=== PATIENT | male | born 1940 | race Hispanic/Latino ===

== ENCOUNTER 2018-03-03 08:00 | Inpatient (IN) | payer MEDICARE, OTHER ==
[~2018-03-03] VITALS: Ht 175.3 cm; Wt 85.7 kg
[2018-03-03 11:54] LABS: BASOPHILS % (AUTO) 0.8 % (0.0-5.0); EOSINOPHILS % (AUTO) 2.5 % (0.0-8.0); LYMPHOCYTES % (AUTO) 28.1 % (21.0-51.0); MEAN CORPUSCULAR HEMOGLOBIN 28.1 pg (27.0-33.0); MEAN CORPUSCULAR HGB CONC 33.7 g/dL (32.0-36.0); MEAN CORPUSCULAR VOLUME 83.4 fL (79-99); MONOCYTES % (AUTO) 9.6 % (3.0-13.0); PLATELET COUNT (AUTO) 196 K/uL (130-400); RED BLOOD CELL COUNT(AUTO) 4.32 MIL/uL (4.50-6.20); RED CELL DISTRIBUTION WIDTH 15.4 % (11.0-15.5); WHITE BLOOD COUNT (AUTO) 6.7 K/uL (4.8-10.8)
[2018-03-03 12:04] LABS: POTASSIUM 3.9 mmol/L (3.5-5.1)
[2018-03-03 12:07] LABS: INR 0.91 (0.85-1.15); PARTIAL THROMBOPLASTIN TIME 26.1 SEC (26.3-35.5); PROTHROMBIN TIME 9.6 SEC (9.6-11.6)
[2018-03-03 12:39] VITALS: BP 143/69
[2018-03-03] MEDS ORDERED: ESOM40CA PO (12:51)
[2018-03-05] VITALS (20 sets, daily range): BP systolic 107–173; BP diastolic 47–91
[2018-03-05] MEDS: CEFAZOLIN SODIUM 1 GM VIAL IVP SCH ×2 (06:00→13:28)
[2018-03-05] MEDS: SODIUM CHLORIDE 0.9% 1000ML 1,000 ML IV SCH ×4 (07:06→20:52)
[2018-03-05] MEDS ORDERED: HEPARIN SODIUM 1000UNIT/ML 10ML VIAL ONE ×2 (09:32→10:27)
[2018-03-05] MEDS ORDERED: ISOVUE-300 100 ML VIAL IV ONE (09:32)
[2018-03-05] MEDS ORDERED: EPHEDRINE SULFATE 50 MG/ML AMPULE ONE (09:56)
[2018-03-05] MEDS ORDERED: SODIUM CHLORIDE 0.9% 10 ML VIAL ONE ×2 (09:56→18:09)
[2018-03-05] MEDS ORDERED: PHENYLEPHRINE HCL 10 MG/ML 1ML VIAL IV ONE (09:56)
[2018-03-05] MEDS ORDERED: MIDAZOLAM HCL 1 MG/ML 2ML VIAL ONE (09:56)
[2018-03-05] MEDS ORDERED: PROPOFOL 10 MG/ML 20ML VIAL IV ONE (09:57)
[2018-03-05] MEDS ORDERED: FENTANYL CITRATE PF 50 MCG/1 ML 5ML AMP IV ONE (09:57)
[2018-03-05] MEDS ORDERED: GLYCOPYRROLATE 0.2 MG/ML 5 ML VIAL ONE (09:57)
[2018-03-05] MEDS ORDERED: NEOSTIGMINE 5MG/5ML SYR IV ONE (09:57)
[2018-03-05] MEDS ORDERED: LIDOCAINE HCL MPF 1% 5ML VIAL ONE (09:57)
[2018-03-05] MEDS ORDERED: ONDANSETRON HCL 4 MG/2 ML VIAL ONE (10:26)
[2018-03-05] MEDS ORDERED: DEXAMETHASONE SOD PHOSPHATE 10MG/ML 1ML VIAL ONE (10:26)
[2018-03-05] MEDS ORDERED: ROCURONIUM BROMIDE 10MG/1ML 5ML VL ONE (10:58)
[2018-03-05] MEDS ORDERED: LIDOCAINE PF 2% 5ML ABBOJECT ONE (12:09)
[2018-03-05] MEDS ORDERED: MORPHINE SULFATE 4 MG/1ML SYG IV PRN ×2 (12:15)
[2018-03-05] MEDS ORDERED: ONDANSETRON HCL MDV 20ML 2 MG/ML VIAL IV PRN (12:15)
[2018-03-05] MEDS ORDERED: ROSU10TA PO (12:22)
[2018-03-05] MEDS ORDERED: METO25TA3 PO (12:22)
[2018-03-05] MEDS ORDERED: HYDRALAZINE HCL 20 MG/ML VIAL IV PRN (13:15)
[2018-03-05] MEDS ORDERED: HYDRALAZINE HCL 20 MG/ML VIAL ONE (13:20)
[2018-03-05] MEDS: CEFAZOLIN SODIUM 1 GM VIAL IV SCH (18:11)
[2018-03-05] MEDS: METOPROLOL TARTRATE 25 MG TAB PO SCH (20:53)
[2018-03-06] VITALS (11 sets, daily range): BP systolic 112–140; BP diastolic 53–72
[2018-03-06] MEDS: CEFAZOLIN SODIUM 1 GM VIAL IV SCH (02:04)
[2018-03-06 03:56] LABS: HEMATOCRIT 30.6 % (42-54); MEAN CORPUSCULAR HEMOGLOBIN 27.7 pg (27.0-33.0); MEAN CORPUSCULAR HGB CONC 33.3 g/dL (32.0-36.0); MEAN CORPUSCULAR VOLUME 83.4 fL (79-99); PLATELET COUNT (AUTO) 166 K/uL (130-400); RED BLOOD CELL COUNT(AUTO) 3.67 MIL/uL (4.50-6.20); RED CELL DISTRIBUTION WIDTH 15.5 % (11.0-15.5); WHITE BLOOD COUNT (AUTO) 9.1 K/uL (4.8-10.8)
[2018-03-06 04:26] LABS: CREATININE 0.9 mg/dL (0.5-1.5); POTASSIUM 3.8 mmol/L (3.5-5.1)
[2018-03-06] MEDS ORDERED: ASPI-555 PO (07:18)
[2018-03-06] MEDS: METOPROLOL TARTRATE 25 MG TAB PO SCH (08:09)
[2018-03-06] MEDS ORDERED: PANTOPRAZOLE SODIUM 40 MG TABLET.DR PO SCH (09:00)
[2018-03-06] MEDS ORDERED: ASPIRIN 81 MG EC TAB PO SCH (09:00)
[2018-03-06] MEDS ORDERED: ASPIRIN 81MG TAB.CHEW PO SCH (09:00)
== END 2018-03-06 11:50 | disposition home or self-care (01) | DRG 269 ==
LOC: EDSTATUS 08:00 → DAHIP 03-05 05:44 → 2BH 03-05 12:45
PROVIDERS: ADMIT Internal Medicine Cardiovascular Disease; ATTEND Internal Medicine Cardiovascular Disease
PROC: 04V03DZ Restriction of Abdominal Aorta with Intraluminal Device, Percutaneous Approach (ICD-10-PCS; principal; 2018-03-05)
PROC: 0WH Anatomical Regions, General, Insertion (ICD-10-PCS; 2018-03-05)
DX: T82.3 Mechanical complication of other vascular grafts (principal); C67.9 Malignant neoplasm of bladder, unspecified; G72.89 Other specified myopathies; I71.4 Abdominal aortic aneurysm, without rupture; E78.5 Hyperlipidemia, unspecified; I10 Essential (primary) hypertension; I25.10 Atherosclerotic heart disease of native coronary artery without angina pectoris; K22.70 Barrett's esophagus without dysplasia
CPT/HCPCS: 34705; 34713; 36415; 71045; 80048; 85025; 85027; 85347; 85610; 85730; 86850; 86900; 86901; 86922; 93005; A4218; A4344; C1725; C1760; C1769; C1887; C1894; J0360; J0690; J1100; J1644; J2001; J2250; J2370; J2405; J2704; J2710; J3010; J3490; J7030; Q9967

== ENCOUNTER → 2018-03-21 | Outpatient (CLI) | payer OTHER ==
[~2018-03-21] MED LIST: ASPI-555 PO; ESOM40CA PO; IOPAMIDOL-370 100 ML VIAL IV ONE; METO25TA3 PO; ROSU10TA PO
== END | disposition home or self-care (01) ==
LOC: RAH 10:21
PROVIDERS: ATTEND Internal Medicine
DX: I71.4 Abdominal aortic aneurysm, without rupture (principal); K44.9 Diaphragmatic hernia without obstruction or gangrene; I25.10 Atherosclerotic heart disease of native coronary artery without angina pectoris
CPT/HCPCS: 74174; Q9967

== ENCOUNTER → 2019-04-09 | Outpatient (CLI) | payer MEDICARE, OTHER ==
[~2019-04-09] MED LIST changes: +IOHEXOL 350 MG/ML 100ML INFUS..BTL IV ONE; -IOPAMIDOL-370 100 ML VIAL IV ONE; -ROSU10TA PO; +ROSU10TA22 PO
== END | disposition home or self-care (01) ==
LOC: RAH 08:07
PROVIDERS: ATTEND Internal Medicine Cardiovascular Disease
DX: I71.4 Abdominal aortic aneurysm, without rupture (principal); I72.3 Aneurysm of iliac artery; N13.30 Unspecified hydronephrosis; N28.1 Cyst of kidney, acquired
CPT/HCPCS: 74174; Q9967

== ENCOUNTER 2021-02-09 15:22 | Inpatient (IN) | payer OTHER ==
[~2021-02-09] VITALS: Ht 177.8 cm; Wt 68.4 kg
[~2021-02-09 15:22] MED LIST changes: -ASPI-555 PO; +ASPI-556 PO; -IOHEXOL 350 MG/ML 100ML INFUS..BTL IV ONE
[2021-02-09 16:48] LABS: BASOPHILS % (AUTO) 0.6 % (0.0-5.0); EOSINOPHILS % (AUTO) 1.1 % (0.0-8.0); LYMPHOCYTES % (AUTO) 32.4 % (21.0-51.0); MEAN CORPUSCULAR HEMOGLOBIN 25.6 pg (27.0-33.0); MONOCYTES % (AUTO) 8.1 % (3.0-13.0); NEUTROPHILS % (AUTO) 56.7 % (40.0-77.0); PLATELET COUNT (AUTO) 332 K/uL (130-400); RED CELL DISTRIBUTION WIDTH 17.7 % (11.0-15.5); WHITE BLOOD COUNT (AUTO) 5.3 K/uL (4.8-10.8)
[2021-02-09 17:01] LABS: CREATININE 1.7 mg/dL (0.5-1.5); POTASSIUM 4.3 mmol/L (3.5-5.1)
[2021-02-09 17:06] LABS: ALBUMIN 1.7 g/dL (3.5-5.0); BILIRUBIN,TOTAL 0.3 mg/dL (0.2-1.0); TOTAL PROTEIN, SERUM 6.6 g/dL (6.0-8.3)
[2021-02-09 17:55] LABS: ERYTHROCYTE SEDIMENTATION RATE 103 MM/HR (0-20)
[2021-02-09 18:07] LABS: APPEARANCE,URINE CLOUDY (CLEAR); BILIRUBIN,URINE NEGATIVE (NEGATIVE); COLOR,URINE RED (YELLOW); GLUCOSE, URINE (UA) NEGATIVE (NEGATIVE); KETONES,URINE NEGATIVE (NEGATIVE); LEUKOCYTE ESTERASE ,URINE LARGE (NEGATIVE); NITRATE,URINE NEGATIVE (NEGATIVE); OCCULT BLOOD,URINE LARGE (NEGATIVE); PH,URINE 7.5 (5.0-8.0); PROTEIN,URINE 100 mg/dL (NEGATIVE); UROBILINOGEN,URINE 0.2 mg/dL (0.2-1.0)
[2021-02-09 18:08] LABS: BACTERIA,URINE Few /HPF (None Seen); RBC,URINE >100 /HPF (0-1); SQUAMOUS EPITHELIAL CELL,UR None Seen /HPF (0-2)
[2021-02-09] MEDS: CEFTRIAXONE 1G VIAL IVP SCH (19:45)
[2021-02-09] MEDS ORDERED: ACETAMINOPHEN 325 MG TAB PO PRN ×2 (20:00)
[2021-02-09] MEDS: 0.9%NACL 1000ML 1,000 ML IV SCH (20:00)
[2021-02-09] MEDS ORDERED: 0.9%NACL 1000ML 1,000 ML IV SCH (20:00)
[2021-02-09] MEDS ORDERED: NITROGLYCERIN 0.4 MG SL TAB SL PRN (20:00)
[2021-02-09] MEDS ORDERED: 0.9% NACL 250ML 250 ML IV ONE (20:14)
[2021-02-09] MEDS: FAMOTIDINE 20MG TAB PO SCH (21:00)
[2021-02-09] MEDS ORDERED: FAMOTIDINE 20MG TAB ONE (22:33)
[2021-02-09] MEDS ORDERED: CEFTRIAXONE 1G VIAL ONE (22:34)
[2021-02-09 23:30] VITALS: BP 142/57
[2021-02-10 04:00] VITALS: BP 127/73
[2021-02-10 05:32] LABS: BASOPHILS % (AUTO) 1.1 % (0.0-5.0); HEMATOCRIT 26.1 % (42-54); LYMPHOCYTES % (AUTO) 28.2 % (21.0-51.0); MEAN CORPUSCULAR HEMOGLOBIN 25.9 pg (27.0-33.0); MEAN CORPUSCULAR HGB CONC 31.8 g/dL (32.0-36.0); MEAN CORPUSCULAR VOLUME 81.3 fL (79-99); MONOCYTES % (AUTO) 8.6 % (3.0-13.0); NEUTROPHILS % (AUTO) 59.3 % (40.0-77.0); PLATELET COUNT (AUTO) 319 K/uL (130-400); RED BLOOD CELL COUNT(AUTO) 3.21 MIL/uL (4.50-6.20); RED CELL DISTRIBUTION WIDTH 17.3 % (11.0-15.5); WHITE BLOOD COUNT (AUTO) 6.5 K/uL (4.8-10.8)
[2021-02-10 05:48] LABS: ALBUMIN 1.5 g/dL (3.5-5.0); BILIRUBIN,TOTAL 0.4 mg/dL (0.2-1.0); CREATININE 1.6 mg/dL (0.5-1.5); MAGNESIUM 1.6 mg/dL (1.80-2.40); POTASSIUM 3.9 mmol/L (3.5-5.1)
[2021-02-10] MEDS: 0.9%NACL 1000ML 1,000 ML IV SCH ×2 (06:00→16:15)
[2021-02-10] MEDS ORDERED: MEGE40L PO (06:38)
[2021-02-10] MEDS ORDERED: MULT-1367 PO (06:38)
[2021-02-10] MEDS ORDERED: ENZA40CA PO (06:38)
[2021-02-10 08:01] VITALS: BP 141/75
[2021-02-10] MEDS: FAMOTIDINE 20MG TAB PO SCH ×2 (09:22→20:36)
[2021-02-10 12:04] VITALS: BP 147/69
[2021-02-10 16:33] VITALS: BP 153/73
[2021-02-10] MEDS: HYDROXYZINE 25 MG TABLET PO PRN (17:24)
[2021-02-10 20:00] VITALS: BP 155/68
[2021-02-10] MEDS: CEFTRIAXONE 1G VIAL IVP SCH (20:36)
[2021-02-11] MEDS: 0.9%NACL 1000ML 1,000 ML IV SCH (02:00)
[2021-02-11 04:00] VITALS: BP 139/66
[2021-02-11 08:03] VITALS: BP 152/64
[2021-02-11] MEDS: FAMOTIDINE 20MG TAB PO SCH (08:58)
[2021-02-11 11:33] VITALS: BP 151/67
[2021-02-11] MEDS: HYDROXYZINE 25 MG TABLET PO PRN (14:29)
[2021-02-11 15:24] LABS: BASOPHILS % (AUTO) 0.7 % (0.0-5.0); EOSINOPHILS % (AUTO) 1.7 % (0.0-8.0); HEMATOCRIT 26.9 % (42-54); MEAN CORPUSCULAR HEMOGLOBIN 27.1 pg (27.0-33.0); MEAN CORPUSCULAR HGB CONC 32.3 g/dL (32.0-36.0); MEAN CORPUSCULAR VOLUME 83.8 fL (79-99); MONOCYTES % (AUTO) 7.6 % (3.0-13.0); NEUTROPHILS % (AUTO) 55.6 % (40.0-77.0); PLATELET COUNT (AUTO) 309 K/uL (130-400); RED BLOOD CELL COUNT(AUTO) 3.21 MIL/uL (4.50-6.20); RED CELL DISTRIBUTION WIDTH 18.2 % (11.0-15.5); WHITE BLOOD COUNT (AUTO) 7.1 K/uL (4.8-10.8)
[2021-02-11 15:48] LABS: CREATININE 1.7 mg/dL (0.5-1.5); POTASSIUM 3.9 mmol/L (3.5-5.1)
[2021-02-11 16:16] VITALS: BP 148/56
== END 2021-02-11 18:30 | disposition home or self-care (01) | DRG 699 ==
LOC: EDH 15:22 → EDHIP 18:30 → 3BH 22:50
PROVIDERS: ADMIT Internal Medicine; ATTEND Internal Medicine
PROC: 30233N1 Transfusion of Nonautologous Red Blood Cells into Peripheral Vein, Percutaneous Approach (ICD-10-PCS; principal; 2021-02-09)
PROC: 0T2BX0Z Change Drainage Device in Bladder, External Approach (ICD-10-PCS; 2021-02-09)
DX: T83.518A Infection and inflammatory reaction due to other urinary catheter, initial encounter (principal); N17.9 Acute kidney failure, unspecified; N13.6 Pyonephrosis; D62 Acute posthemorrhagic anemia; F32.9 Major depressive disorder, single episode, unspecified; M19.90 Unspecified osteoarthritis, unspecified site; R31.9 Hematuria, unspecified; M85.80 Other specified disorders of bone density and structure, unspecified site; Z20.822 Contact with and (suspected) exposure to COVID-19; Y84.6 Urinary catheterization as the cause of abnormal reaction of the patient, or of later complication, without mention of misadventure at the time of the procedure; Y92.89 Other specified places as the place of occurrence of the external cause; Z90.79 Acquired absence of other genital organ(s); Z87.891 Personal history of nicotine dependence; Z95.1 Presence of aortocoronary bypass graft; Z85.46 Personal history of malignant neoplasm of prostate; Z83.3 Family history of diabetes mellitus; Z80.9 Family history of malignant neoplasm, unspecified; T83.098A Other mechanical complication of other urinary catheter, initial encounter
CPT/HCPCS: 36415; 72131; 74176; 80048; 80053; 81001; 82550; 83605; 83735; 84484; 85025; 85651; 86140; 86850; 86900; 86901; 86923; 87040; 87088; 87426; 93005; G0378; J0696; J7030; J7050; P9016; U0003

== ENCOUNTER 2021-03-03 22:10 | Inpatient (IN) | payer OTHER ==
[~2021-03-03] VITALS: Ht 172.7 cm; Wt 61.3 kg
[~2021-03-03 22:10] MED LIST changes: -ASPI-556 PO; +ENZA40CA PO; -ESOM40CA PO; +MEGE40L PO; -METO25TA3 PO; +MULT-1367 PO; -ROSU10TA22 PO
[2021-03-03] MEDS ORDERED: FENTANYL CITRATE PF 50 MCG/1 ML 2ML VIAL ONE (22:33)
[2021-03-03] MEDS ORDERED: SODIUM CHLORIDE 0.9% 1000ML 1,000 ML IV ONE (22:34)
[2021-03-03 22:43] LABS: BASOPHILS % (AUTO) 0.7 % (0.0-5.0); EOSINOPHILS % (AUTO) 0.5 % (0.0-8.0); HEMATOCRIT 28.3 % (42-54); LYMPHOCYTES % (AUTO) 19.9 % (21.0-51.0); MEAN CORPUSCULAR HEMOGLOBIN 26.8 pg (27.0-33.0); MEAN CORPUSCULAR HGB CONC 32.2 g/dL (32.0-36.0); MEAN CORPUSCULAR VOLUME 83.2 fL (79-99); MONOCYTES % (AUTO) 7.7 % (3.0-13.0); NEUTROPHILS % (AUTO) 70.7 % (40.0-77.0); PLATELET COUNT (AUTO) 460 K/uL (130-400); RED CELL DISTRIBUTION WIDTH 18.6 % (11.0-15.5); WHITE BLOOD COUNT (AUTO) 8.3 K/uL (4.8-10.8)
[2021-03-03 22:44] LABS: APPEARANCE,URINE Turbid (CLEAR); BILIRUBIN,URINE Small (NEGATIVE); COLOR,URINE AMBER (YELLOW); GLUCOSE, URINE (UA) Negative (NEGATIVE); KETONES,URINE Negative (NEGATIVE); LEUKOCYTE ESTERASE ,URINE Large (NEGATIVE); NITRATE,URINE Positive (NEGATIVE); OCCULT BLOOD,URINE Moderate (NEGATIVE); PH,URINE >=9.0 (5.0-8.0); PROTEIN,URINE POS 2+ mg/dL (NEGATIVE); UROBILINOGEN,URINE 0.2 mg/dL (0.2-1.0)
[2021-03-03 22:45] LABS: BACTERIA,URINE Many /HPF (None Seen); RBC,URINE TNTC /HPF (0-1); WBC,URINE 51-100 /HPF (0-1)
[2021-03-03 22:57] LABS: CREATININE 1.9 mg/dL (0.5-1.5); POTASSIUM 4.4 mmol/L (3.5-5.1)
[2021-03-03 22:59] LABS: INR 1.03 (0.85-1.15); PROTHROMBIN TIME 11.2 SEC (9.6-11.6)
[2021-03-03 23:00] LABS: PARTIAL THROMBOPLASTIN TIME 28.8 SEC (26.3-35.5)
[2021-03-03 23:01] LABS: ALBUMIN 1.9 g/dL (3.5-5.0); BILIRUBIN,TOTAL 0.3 mg/dL (0.2-1.0)
[2021-03-03] MEDS ORDERED: CEFTRIAXONE SODIUM 1 GM ONE (23:07)
[2021-03-03 23:10] LABS: B-TYPE NATRIURETIC PEPTIDE 428 pg/mL (0-100)
[2021-03-04] MEDS ORDERED: SODIUM CHLORIDE 0.9% 1000ML 1,000 ML IV SCH
[2021-03-04] MEDS ORDERED: ACETAMINOPHEN 325 MG TAB PO PRN
[2021-03-04 00:30] LABS: HEMOGLOBIN A1C 5.5 % (4.0-6.0)
[2021-03-04 04:20] VITALS: BP 150/80
[2021-03-04] MEDS ORDERED: ESCI-8 PO (05:48)
[2021-03-04 06:22] LABS: BASOPHILS % (AUTO) 0.8 % (0.0-5.0); EOSINOPHILS % (AUTO) 8.5 % (0.0-8.0); HEMATOCRIT 22.9 % (42-54); LYMPHOCYTES % (AUTO) 21.8 % (21.0-51.0); MEAN CORPUSCULAR HEMOGLOBIN 27.6 pg (27.0-33.0); MEAN CORPUSCULAR HGB CONC 32.8 g/dL (32.0-36.0); MEAN CORPUSCULAR VOLUME 84.2 fL (79-99); MONOCYTES % (AUTO) 9.6 % (3.0-13.0); NEUTROPHILS % (AUTO) 58.4 % (40.0-77.0); PLATELET COUNT (AUTO) 345 K/uL (130-400); RED BLOOD CELL COUNT(AUTO) 2.72 MIL/uL (4.50-6.20); RED CELL DISTRIBUTION WIDTH 18.8 % (11.0-15.5); WHITE BLOOD COUNT (AUTO) 5.3 K/uL (4.8-10.8)
[2021-03-04 06:39] LABS: INR 1.07 (0.85-1.15); PROTHROMBIN TIME 11.6 SEC (9.6-11.6)
[2021-03-04 06:41] LABS: ALBUMIN 1.6 g/dL (3.5-5.0); BILIRUBIN,TOTAL 0.3 mg/dL (0.2-1.0); CREATININE 1.6 mg/dL (0.5-1.5); PARTIAL THROMBOPLASTIN TIME 30.8 SEC (26.3-35.5); POTASSIUM 4.3 mmol/L (3.5-5.1); TOTAL PROTEIN, SERUM 6.4 g/dL (6.0-8.3)
[2021-03-04] MEDS: ACETAMINOPHEN 325 MG TAB PO PRN ×2 (07:54→19:30)
[2021-03-04] MEDS: FAMOTIDINE/PF 20 MG/2 ML VIAL IV SCH ×2 (07:55→21:55)
[2021-03-04] MEDS ORDERED: FENTANYL 100 MCG/HR PATCH TD SCH (08:00)
[2021-03-04] MEDS: ZOSYN 3.375GM+NS 50ML 50 ML IV SCH ×2 (08:39→21:55)
[2021-03-04 09:15] VITALS: BP 158/79
[2021-03-04 12:04] VITALS: BP 135/71
[2021-03-04 16:08] LABS: HEMATOCRIT 23.1 % (42-54)
[2021-03-04 17:27] VITALS: BP 141/77
[2021-03-04 20:00] VITALS: BP 147/69
[2021-03-04 23:50] VITALS: BP 148/71
[2021-03-05] MEDS: ACETAMINOPHEN 325 MG TAB PO PRN (00:45)
[2021-03-05 03:51] VITALS: BP 106/73
[2021-03-05] MEDS: ENZALUTAMIDE 160 MG PO SCH ×2 (04:42→20:15)
[2021-03-05 05:14] LABS: BASOPHILS % (AUTO) 0.6 % (0.0-5.0); EOSINOPHILS % (AUTO) 2.6 % (0.0-8.0); HEMATOCRIT 27.1 % (42-54); LYMPHOCYTES % (AUTO) 21.4 % (21.0-51.0); MEAN CORPUSCULAR HEMOGLOBIN 27.4 pg (27.0-33.0); MEAN CORPUSCULAR HGB CONC 32.8 g/dL (32.0-36.0); MEAN CORPUSCULAR VOLUME 83.4 fL (79-99); MONOCYTES % (AUTO) 7.3 % (3.0-13.0); NEUTROPHILS % (AUTO) 67.3 % (40.0-77.0); PLATELET COUNT (AUTO) 356 K/uL (130-400); RED BLOOD CELL COUNT(AUTO) 3.25 MIL/uL (4.50-6.20); RED CELL DISTRIBUTION WIDTH 17.5 % (11.0-15.5); WHITE BLOOD COUNT (AUTO) 6.5 K/uL (4.8-10.8)
[2021-03-05 05:42] LABS: ALBUMIN 1.5 g/dL (3.5-5.0); BILIRUBIN,TOTAL 0.4 mg/dL (0.2-1.0); POTASSIUM 4.2 mmol/L (3.5-5.1); TOTAL PROTEIN, SERUM 6.5 g/dL (6.0-8.3)
[2021-03-05 08:00] VITALS: BP 145/73
[2021-03-05] MEDS: ZOSYN 3.375GM+NS 50ML 50 ML IV SCH ×2 (08:28→20:14)
[2021-03-05] MEDS: FAMOTIDINE/PF 20 MG/2 ML VIAL IV SCH ×2 (08:28→20:14)
[2021-03-05] MEDS: MEGESTROL ACETATE PO SCH (08:31)
[2021-03-05] MEDS ORDERED: ACETAMINOPHEN 325 MG TAB PO PRN (12:30)
[2021-03-05 12:47] VITALS: BP 142/76
[2021-03-05 17:22] VITALS: BP 163/83
[2021-03-05] MEDS: TRAMADOL HCL 50 MG TABLET PO SCH ×2 (18:52→23:53)
[2021-03-05 20:00] VITALS: BP 143/83
[2021-03-05] MEDS ORDERED: MORPHINE 2 MG SYG (2MG/1ML) ONE (21:12)
[2021-03-05] MEDS: ONDANSETRON HCL 4 MG/2 ML VIAL IV PRN (21:14)
[2021-03-05] MEDS ORDERED: MORPHINE 2 MG SYG (2MG/1ML) IVP PRN (21:15)
[2021-03-06] VITALS (7 sets, daily range): BP systolic 137–169; BP diastolic 62–87
[2021-03-06 04:59] LABS: BASOPHILS % (AUTO) 0.7 % (0.0-5.0); EOSINOPHILS % (AUTO) 1.8 % (0.0-8.0); HEMATOCRIT 26.5 % (42-54); LYMPHOCYTES % (AUTO) 16.1 % (21.0-51.0); MEAN CORPUSCULAR HEMOGLOBIN 28.1 pg (27.0-33.0); MEAN CORPUSCULAR HGB CONC 32.8 g/dL (32.0-36.0); MEAN CORPUSCULAR VOLUME 85.5 fL (79-99); MONOCYTES % (AUTO) 8.1 % (3.0-13.0); NEUTROPHILS % (AUTO) 72.6 % (40.0-77.0); PLATELET COUNT (AUTO) 349 K/uL (130-400); WHITE BLOOD COUNT (AUTO) 7.1 K/uL (4.8-10.8)
[2021-03-06 05:37] LABS: ALBUMIN 1.5 g/dL (3.5-5.0); BILIRUBIN,TOTAL 0.4 mg/dL (0.2-1.0); CREATININE 2.4 mg/dL (0.5-1.5); POTASSIUM 4.4 mmol/L (3.5-5.1); TOTAL PROTEIN, SERUM 6.4 g/dL (6.0-8.3)
[2021-03-06] MEDS: TRAMADOL HCL 50 MG TABLET PO SCH (05:39)
[2021-03-06] MEDS: ZOSYN 3.375GM+NS 50ML 50 ML IV SCH ×2 (08:15→20:20)
[2021-03-06] MEDS: FAMOTIDINE/PF 20 MG/2 ML VIAL IV SCH ×2 (08:15→20:20)
[2021-03-06] MEDS: ONDANSETRON HCL 4 MG/2 ML VIAL IV PRN ×2 (08:15→20:20)
[2021-03-06] MEDS: MEGESTROL ACETATE PO SCH (08:25)
[2021-03-06] MEDS ORDERED: HYDROMORPHONE 0.5 MG SYG (0.5MG/0.5ML) IVP PRN (10:30)
[2021-03-06] MEDS: TRAMADOL HCL 50 MG TABLET PO PRN (20:20)
[2021-03-06] MEDS: ENZALUTAMIDE 160 MG PO SCH (20:21)
[2021-03-07] VITALS: BP 148/78
[2021-03-07 04:25] VITALS: BP 144/84
[2021-03-07 05:36] LABS: BASOPHILS % (AUTO) 0.7 % (0.0-5.0); EOSINOPHILS % (AUTO) 1.4 % (0.0-8.0); HEMATOCRIT 27.3 % (42-54); LYMPHOCYTES % (AUTO) 15.8 % (21.0-51.0); MEAN CORPUSCULAR HEMOGLOBIN 26.9 pg (27.0-33.0); MEAN CORPUSCULAR HGB CONC 31.9 g/dL (32.0-36.0); MEAN CORPUSCULAR VOLUME 84.3 fL (79-99); MONOCYTES % (AUTO) 7.1 % (3.0-13.0); NEUTROPHILS % (AUTO) 74.3 % (40.0-77.0); PLATELET COUNT (AUTO) 446 K/uL (130-400); RED BLOOD CELL COUNT(AUTO) 3.24 MIL/uL (4.50-6.20); WHITE BLOOD COUNT (AUTO) 9.1 K/uL (4.8-10.8)
[2021-03-07 06:03] LABS: ALBUMIN 1.6 g/dL (3.5-5.0); BILIRUBIN,TOTAL 0.4 mg/dL (0.2-1.0); CREATININE 2.5 mg/dL (0.5-1.5); PHOSPHORUS 5.5 mg/dL (2.5-4.9); POTASSIUM 4.2 mmol/L (3.5-5.1); TOTAL PROTEIN, SERUM 6.9 g/dL (6.0-8.3)
[2021-03-07 06:04] LABS: % IRON SATURATION 9.3 % (30-44)
[2021-03-07 07:00] VITALS: BP 149/81
[2021-03-07] MEDS: ONDANSETRON HCL 4 MG/2 ML VIAL IV PRN ×2 (07:59→22:00)
[2021-03-07] MEDS: FAMOTIDINE/PF 20 MG/2 ML VIAL IV SCH ×2 (07:59→21:00)
[2021-03-07] MEDS: ZOSYN 3.375GM+NS 50ML 50 ML IV SCH ×2 (07:59→21:00)
[2021-03-07] MEDS: MEGESTROL ACETATE PO SCH (09:00)
[2021-03-07] MEDS: TRAMADOL HCL 50 MG TABLET PO PRN ×2 (11:18→22:00)
[2021-03-07] MEDS: Vitamin B Complex/Vit C/Folic Acid PO SCH (11:20)
[2021-03-07] MEDS ORDERED: LIDOCAINE 5% TOPICAL PATCH TP SCH (11:30)
[2021-03-07 11:33] VITALS: BP 139/84
[2021-03-07] MEDS ORDERED: COMPOUND IV MISC 1 EACH IVSOLN MISC PRN (14:00)
[2021-03-07 16:20] VITALS: BP 147/91
[2021-03-07] MEDS: IRON SUCROSE COMPLEX 300 MG in SODIUM CHLORIDE 0.9% 50 ML IV SCH (17:40)
[2021-03-07 19:50] VITALS: BP 149/87
[2021-03-07] MEDS: ENZALUTAMIDE 160 MG PO SCH (22:00)
[2021-03-08 00:02] VITALS: BP 152/83
[2021-03-08 03:55] VITALS: BP 154/87
[2021-03-08 04:53] LABS: HEMATOCRIT 26.1 % (42-54); MEAN CORPUSCULAR HEMOGLOBIN 27.7 pg (27.0-33.0); MEAN CORPUSCULAR HGB CONC 32.6 g/dL (32.0-36.0); RED BLOOD CELL COUNT(AUTO) 3.07 MIL/uL (4.50-6.20); WHITE BLOOD COUNT (AUTO) 9.3 K/uL (4.8-10.8)
[2021-03-08 05:05] LABS: CREATININE 2.9 mg/dL (0.5-1.5); POTASSIUM 4.2 mmol/L (3.5-5.1)
[2021-03-08] MEDS: IRON SUCROSE COMPLEX 300 MG in SODIUM CHLORIDE 0.9% 50 ML IV SCH (07:45)
[2021-03-08] MEDS: FAMOTIDINE/PF 20 MG/2 ML VIAL IV SCH ×2 (07:45→20:37)
[2021-03-08] MEDS: Vitamin B Complex/Vit C/Folic Acid PO SCH (07:46)
[2021-03-08 08:03] VITALS: BP 163/100
[2021-03-08] MEDS: CALCITONIN 3.7 ML AEROSOL NS SCH (08:19)
[2021-03-08] MEDS: MEGESTROL ACETATE PO SCH (09:00)
[2021-03-08] MEDS: ZOSYN 3.375GM+NS 50ML 50 ML IV SCH ×2 (10:34→20:37)
[2021-03-08 12:00] VITALS: BP 174/79
[2021-03-08 16:00] VITALS: BP 159/102
[2021-03-08] MEDS ORDERED: AMLODIPINE BESYLATE 5 MG TAB PO SCH (16:00)
[2021-03-08 20:00] VITALS: BP 168/85
[2021-03-08] MEDS ORDERED: AMLODIPINE BESYLATE 5 MG TAB ONE (20:04)
[2021-03-08] MEDS: ENZALUTAMIDE 160 MG PO SCH (21:33)
[2021-03-09] VITALS: BP 158/89
[2021-03-09 03:57] VITALS: BP 138/70
[2021-03-09 04:56] LABS: HEMATOCRIT 24.6 % (42-54); MEAN CORPUSCULAR HEMOGLOBIN 27.3 pg (27.0-33.0); MEAN CORPUSCULAR HGB CONC 32.5 g/dL (32.0-36.0); RED BLOOD CELL COUNT(AUTO) 2.93 MIL/uL (4.50-6.20); RED CELL DISTRIBUTION WIDTH 17.9 % (11.0-15.5); WHITE BLOOD COUNT (AUTO) 7.5 K/uL (4.8-10.8)
[2021-03-09 05:11] LABS: ALBUMIN 1.4 g/dL (3.5-5.0); BILIRUBIN,TOTAL 0.3 mg/dL (0.2-1.0); CREATININE 2.8 mg/dL (0.5-1.5); PHOSPHORUS 4.9 mg/dL (2.5-4.9); TOTAL PROTEIN, SERUM 6.5 g/dL (6.0-8.3)
[2021-03-09 08:00] VITALS: BP 152/74
[2021-03-09] MEDS: MEGESTROL ACETATE PO SCH (09:00)
[2021-03-09] MEDS: AMLODIPINE BESYLATE 5 MG TAB PO SCH (11:36)
[2021-03-09] MEDS: ZOSYN 3.375GM+NS 50ML 50 ML IV SCH ×2 (11:36→21:10)
[2021-03-09] MEDS: Vitamin B Complex/Vit C/Folic Acid PO SCH (11:36)
[2021-03-09] MEDS: IRON SUCROSE COMPLEX 300 MG in SODIUM CHLORIDE 0.9% 50 ML IV SCH (11:37)
[2021-03-09] MEDS: CALCITONIN 3.7 ML AEROSOL NS SCH (11:38)
[2021-03-09] MEDS: FAMOTIDINE/PF 20 MG/2 ML VIAL IV SCH ×2 (11:39→20:16)
[2021-03-09 12:00] VITALS: BP 128/95
[2021-03-09] MEDS: TRAMADOL HCL 50 MG TABLET PO PRN (15:05)
[2021-03-09 16:00] VITALS: BP 119/86
[2021-03-09] MEDS: DEXAMETHASONE 4 MG TAB PO SCH (20:16)
[2021-03-09 20:38] VITALS: BP 167/91
[2021-03-09] MEDS: ENZALUTAMIDE 160 MG PO SCH (21:10)
[2021-03-10] VITALS (31 sets, daily range): BP systolic 127–176; BP diastolic 69–98
[2021-03-10 05:30] LABS: HEMATOCRIT 28.3 % (42-54); MEAN CORPUSCULAR HEMOGLOBIN 28.2 pg (27.0-33.0); MEAN CORPUSCULAR HGB CONC 33.6 g/dL (32.0-36.0); RED BLOOD CELL COUNT(AUTO) 3.37 MIL/uL (4.50-6.20); RED CELL DISTRIBUTION WIDTH 16.9 % (11.0-15.5); WHITE BLOOD COUNT (AUTO) 7.7 K/uL (4.8-10.8)
[2021-03-10 05:43] LABS: CREATININE 2.8 mg/dL (0.5-1.5); POTASSIUM 4.2 mmol/L (3.5-5.1)
[2021-03-10] MEDS: AMLODIPINE BESYLATE 5 MG TAB PO SCH (09:00)
[2021-03-10] MEDS: DEXAMETHASONE 4 MG TAB PO SCH ×2 (09:00→21:06)
[2021-03-10] MEDS: IRON SUCROSE COMPLEX 300 MG in SODIUM CHLORIDE 0.9% 50 ML IV SCH (09:00)
[2021-03-10] MEDS: ZOSYN 3.375GM+NS 50ML 50 ML IV SCH ×2 (09:00→21:06)
[2021-03-10] MEDS: FAMOTIDINE/PF 20 MG/2 ML VIAL IV SCH ×2 (09:00→21:06)
[2021-03-10] MEDS: Vitamin B Complex/Vit C/Folic Acid PO SCH (09:00)
[2021-03-10] MEDS: MEGESTROL ACETATE PO SCH (09:00)
[2021-03-10] MEDS ORDERED: LACTATED RINGERS 1000ML 1,000 ML IV SCH (12:15)
[2021-03-10] MEDS ORDERED: IODIXANOL 320 MG/ML 100 ML VIAL ONE (13:41)
[2021-03-10] MEDS ORDERED: LIDOCAINE HCL 1% MDV 50ML VIAL ONE (13:42)
[2021-03-10] MEDS ORDERED: MIDAZOLAM HCL 1 MG/ML 2ML VIAL ONE (15:08)
[2021-03-10] MEDS ORDERED: FENTANYL CITRATE PF 50 MCG/1 ML 2ML VIAL ONE ×2 (15:08→16:28)
[2021-03-10] MEDS ORDERED: KETAMINE 50MG/ML SYRINGE 50 MG/ML DISP.SYRIN IV ONE (15:56)
[2021-03-10] MEDS ORDERED: PROPOFOL 10 MG/ML 20ML VIAL IV ONE (16:06)
[2021-03-10] MEDS ORDERED: IOHEXOL-350 50ML VIAL IV ONE (16:17)
[2021-03-10] MEDS ORDERED: AMINOCAPROIC ACID 250 MG/ML 20 ML VIAL ONE (16:43)
[2021-03-10] MEDS ORDERED: ONDANSETRON HCL 4 MG/2 ML VIAL ONE (17:34)
[2021-03-10] MEDS ORDERED: AMINOCAPROIC ACID 10,000 MG in SODIUM CHLORIDE 0.9% 1000ML 1,000 ML IV SCH (18:00)
[2021-03-10] MEDS: ENZALUTAMIDE 160 MG PO SCH (21:00)
[2021-03-10 21:06] LABS: BASOPHILS % (AUTO) 0.2 % (0.0-5.0); EOSINOPHILS % (AUTO) 0.1 % (0.0-8.0); HEMATOCRIT 24.4 % (42-54); LYMPHOCYTES % (AUTO) 5.1 % (21.0-51.0); MEAN CORPUSCULAR HEMOGLOBIN 28.4 pg (27.0-33.0); MEAN CORPUSCULAR HGB CONC 32.8 g/dL (32.0-36.0); MEAN CORPUSCULAR VOLUME 86.5 fL (79-99); MONOCYTES % (AUTO) 5.7 % (3.0-13.0); NEUTROPHILS % (AUTO) 86.7 % (40.0-77.0); PLATELET COUNT (AUTO) 345 K/uL (130-400); RED BLOOD CELL COUNT(AUTO) 2.82 MIL/uL (4.50-6.20); RED CELL DISTRIBUTION WIDTH 17.2 % (11.0-15.5); WHITE BLOOD COUNT (AUTO) 9.6 K/uL (4.8-10.8)
[2021-03-10 21:21] LABS: CREATININE 2.8 mg/dL (0.5-1.5); MAGNESIUM 1.6 mg/dL (1.80-2.40); POTASSIUM 4.2 mmol/L (3.5-5.1)
[2021-03-10] MEDS ORDERED: MAGNESIUM 2GM PREMIX 50ML 50 ML IV ONE (22:51)
[2021-03-10] MEDS ORDERED: MAGNESIUM 2GM PREMIX 50ML 50 ML IV PRN (23:00)
[2021-03-11] VITALS (31 sets, daily range): BP systolic 110–144; BP diastolic 56–90
[2021-03-11 04:05] LABS: HEMATOCRIT 23.7 % (42-54); MEAN CORPUSCULAR HEMOGLOBIN 27.9 pg (27.0-33.0); MEAN CORPUSCULAR HGB CONC 32.5 g/dL (32.0-36.0); MEAN CORPUSCULAR VOLUME 85.9 fL (79-99); PLATELET COUNT (AUTO) 382 K/uL (130-400); RED BLOOD CELL COUNT(AUTO) 2.76 MIL/uL (4.50-6.20); RED CELL DISTRIBUTION WIDTH 17.2 % (11.0-15.5); WHITE BLOOD COUNT (AUTO) 13.3 K/uL (4.8-10.8)
[2021-03-11 04:18] LABS: ALBUMIN 1.4 g/dL (3.5-5.0); BILIRUBIN,TOTAL 0.4 mg/dL (0.2-1.0); CREATININE 2.9 mg/dL (0.5-1.5); MAGNESIUM 2.3 mg/dL (1.80-2.40); POTASSIUM 4.7 mmol/L (3.5-5.1); TOTAL PROTEIN, SERUM 6.1 g/dL (6.0-8.3)
[2021-03-11] MEDS ORDERED: SODIUM CHLORIDE 0.9% 500ML 500 ML IV ONE (04:38)
[2021-03-11 04:46] LABS: BAND NEUTROPHILS % (MANUAL) 7 % (0-2); LYMPHOCYTES % (MANUAL) 1 % (22-44); MAN.DIFF COMMENT-IMPRESSION MANUAL DIFFERENTIAL; MONOCYTES % (MANUAL) 1 % (2-9); REACTIVE LYMPHOCYTES 2 % (0-0); SEGMENTED NEUTROPHILS % 89 % (40-70)
[2021-03-11] MEDS: ZOSYN 3.375GM+NS 50ML 50 ML IV SCH ×2 (08:24→21:35)
[2021-03-11] MEDS: DEXAMETHASONE 4 MG TAB PO SCH ×2 (08:24→21:00)
[2021-03-11] MEDS: FAMOTIDINE/PF 20 MG/2 ML VIAL IV SCH (08:24)
[2021-03-11] MEDS: MEGESTROL ACETATE PO SCH (09:00)
[2021-03-11] MEDS: AMLODIPINE BESYLATE 5 MG TAB PO SCH (09:00)
[2021-03-11] MEDS: Vitamin B Complex/Vit C/Folic Acid PO SCH (09:00)
[2021-03-11 12:53] LABS: HEMATOCRIT 28.8 % (42-54)
[2021-03-11] MEDS: ENZALUTAMIDE 160 MG PO SCH (21:00)
[2021-03-11] MEDS: PANTOPRAZOLE 40 MG/VIAL IVP SCH (21:35)
[2021-03-12] VITALS (20 sets, daily range): BP systolic 128–151; BP diastolic 53–88
[2021-03-12 03:52] LABS: HEMATOCRIT 25.7 % (42-54); MEAN CORPUSCULAR HEMOGLOBIN 27.6 pg (27.0-33.0); MEAN CORPUSCULAR HGB CONC 33.1 g/dL (32.0-36.0); MEAN CORPUSCULAR VOLUME 83.4 fL (79-99); RED BLOOD CELL COUNT(AUTO) 3.08 MIL/uL (4.50-6.20)
[2021-03-12 04:02] LABS: CREATININE 2.7 mg/dL (0.5-1.5); POTASSIUM 3.3 mmol/L (3.5-5.1)
[2021-03-12] MEDS: Vitamin B Complex/Vit C/Folic Acid PO SCH (09:00)
[2021-03-12] MEDS: MEGESTROL ACETATE PO SCH (09:00)
[2021-03-12] MEDS: PANTOPRAZOLE 40 MG/VIAL IVP SCH ×2 (10:24→21:11)
[2021-03-12] MEDS: DEXAMETHASONE 4 MG TAB PO SCH ×2 (10:24→21:00)
[2021-03-12] MEDS: ZOSYN 3.375GM+NS 50ML 50 ML IV SCH ×2 (10:25→21:11)
[2021-03-12] MEDS: SODIUM CHLORIDE 0.9% 1000ML 1,000 ML IV SCH (13:59)
[2021-03-12 14:10] LABS: ABG BASE EXCESS -8.4 mmol/L (-2.0-3.0); ABG OXYGEN SATURATION 97.6 % (95.0-99.0); ABG PCO2 23 mmHg (35-48)
[2021-03-12] MEDS: ENZALUTAMIDE 160 MG PO SCH (21:00)
[2021-03-13 03:50] VITALS: BP 154/71
[2021-03-13 08:00] VITALS: BP 147/93
[2021-03-13] MEDS: MEGESTROL ACETATE PO SCH (09:00)
[2021-03-13] MEDS: DEXAMETHASONE 4 MG TAB PO SCH ×2 (09:00→21:00)
[2021-03-13] MEDS: Vitamin B Complex/Vit C/Folic Acid PO SCH (09:00)
[2021-03-13] MEDS: ZOSYN 3.375GM+NS 50ML 50 ML IV SCH ×2 (11:38→22:19)
[2021-03-13] MEDS: PANTOPRAZOLE 40 MG/VIAL IVP SCH ×2 (11:38→22:19)
[2021-03-13 11:56] VITALS: BP 156/89
[2021-03-13] MEDS: SODIUM CHLORIDE 0.9% 1000ML 1,000 ML IV SCH (12:33)
[2021-03-13 16:00] VITALS: BP 153/93
[2021-03-13] MEDS: DEXTROSE 5 % AND 0.9 % NACL 1,000 ML IV SCH (17:30)
[2021-03-13 20:08] VITALS: BP 145/80
[2021-03-13] MEDS: ENZALUTAMIDE 160 MG PO SCH (21:00)
[2021-03-13 23:24] VITALS: BP 156/69
[2021-03-14 03:54] VITALS: BP 161/66
[2021-03-14 05:22] LABS: HEMATOCRIT 26.5 % (42-54); MEAN CORPUSCULAR HEMOGLOBIN 27.7 pg (27.0-33.0); MEAN CORPUSCULAR HGB CONC 33.2 g/dL (32.0-36.0); MEAN CORPUSCULAR VOLUME 83.3 fL (79-99); PLATELET COUNT (AUTO) 327 K/uL (130-400); RED BLOOD CELL COUNT(AUTO) 3.18 MIL/uL (4.50-6.20); RED CELL DISTRIBUTION WIDTH 18.4 % (11.0-15.5); WHITE BLOOD COUNT (AUTO) 12.5 K/uL (4.8-10.8)
[2021-03-14 05:34] LABS: ALBUMIN 1.4 g/dL (3.5-5.0); BILIRUBIN,TOTAL 0.6 mg/dL (0.2-1.0); CREATININE 3.2 mg/dL (0.5-1.5); PHOSPHORUS 3.3 mg/dL (2.5-4.9); POTASSIUM 3.1 mmol/L (3.5-5.1); TOTAL PROTEIN, SERUM 6.7 g/dL (6.0-8.3)
[2021-03-14 05:35] LABS: BASOPHILS % (MANUAL) 1 % (0-2); EOSINOPHILS % (MANUAL) 2 % (1-6); LYMPHOCYTES % (MANUAL) 15 % (22-44); MAN.DIFF COMMENT-IMPRESSION MANUAL DIFFERENTIAL; MONOCYTES % (MANUAL) 7 % (2-9); SEGMENTED NEUTROPHILS % 75 % (40-70)
[2021-03-14] MEDS: DEXTROSE 5 % AND 0.9 % NACL 1,000 ML IV SCH (06:04)
[2021-03-14] MEDS ORDERED: DEXTROSE 5%-WATER 500 ML IV ONE (07:45)
[2021-03-14 08:00] VITALS: BP 155/67
[2021-03-14] MEDS: PANTOPRAZOLE 40 MG/VIAL IVP SCH ×2 (08:19→21:04)
[2021-03-14] MEDS: ZOSYN 3.375GM+NS 50ML 50 ML IV SCH ×2 (08:20→21:04)
[2021-03-14] MEDS: DEXAMETHASONE 4 MG TAB PO SCH ×2 (08:20→21:04)
[2021-03-14] MEDS: MEGESTROL ACETATE PO SCH (08:20)
[2021-03-14] MEDS: Vitamin B Complex/Vit C/Folic Acid PO SCH (08:20)
[2021-03-14 10:45] VITALS: BP 137/67
[2021-03-14 12:00] VITALS: BP 155/69
[2021-03-14 16:00] VITALS: BP 146/77
[2021-03-14] MEDS: ENZALUTAMIDE 160 MG PO SCH (21:00)
[2021-03-14 21:56] LABS: CREATININE 2.9 mg/dL (0.5-1.5)
[2021-03-14 22:10] LABS: POTASSIUM 2.7 mmol/L (3.5-5.1)
[2021-03-15] VITALS (13 sets, daily range): BP systolic 102–152; BP diastolic 51–88
[2021-03-15 04:58] LABS: HEMATOCRIT 26.4 % (42-54); MEAN CORPUSCULAR HEMOGLOBIN 27.5 pg (27.0-33.0); MEAN CORPUSCULAR HGB CONC 33.3 g/dL (32.0-36.0); MEAN CORPUSCULAR VOLUME 82.5 fL (79-99); PLATELET COUNT (AUTO) 288 K/uL (130-400); RED CELL DISTRIBUTION WIDTH 18.4 % (11.0-15.5); WHITE BLOOD COUNT (AUTO) 9.9 K/uL (4.8-10.8)
[2021-03-15] MEDS ORDERED: DEXTROSE 5%-WATER 500 ML IV ONE (05:15)
[2021-03-15 05:28] LABS: ALBUMIN 1.4 g/dL (3.5-5.0); BILIRUBIN,TOTAL 0.6 mg/dL (0.2-1.0); CREATININE 2.9 mg/dL (0.5-1.5); TOTAL PROTEIN, SERUM 6.7 g/dL (6.0-8.3)
[2021-03-15 05:30] LABS: POTASSIUM 2.7 mmol/L (3.5-5.1)
[2021-03-15 06:09] LABS: BAND NEUTROPHILS % (MANUAL) 3 % (0-2); BASOPHILS % (MANUAL) 2 % (0-2); EOSINOPHILS % (MANUAL) 1 % (1-6); LYMPHOCYTES % (MANUAL) 18 % (22-44); MAN.DIFF COMMENT-IMPRESSION MANUAL DIFFERENTIAL; METAMYELOCYTES % 2 % (0-0); MONOCYTES % (MANUAL) 6 % (2-9); SEGMENTED NEUTROPHILS % 68 % (40-70)
[2021-03-15] MEDS ORDERED: POTASSIUM CHLORIDE 20 MEQ/100 ML BAG IV SCH ×2 (06:45→10:45)
[2021-03-15] MEDS: POTASSIUM CHLORIDE 20MEQ/100ML 100 ML IV PRN ×2 (06:46→10:51)
[2021-03-15] MEDS: DEXAMETHASONE 4 MG TAB PO SCH ×2 (09:00→22:49)
[2021-03-15] MEDS: MEGESTROL ACETATE PO SCH (09:00)
[2021-03-15] MEDS: Vitamin B Complex/Vit C/Folic Acid PO SCH (09:00)
[2021-03-15] MEDS: ZOSYN 3.375GM+NS 50ML 50 ML IV SCH (09:10)
[2021-03-15] MEDS: PANTOPRAZOLE 40 MG/VIAL IVP SCH ×2 (09:10→22:49)
[2021-03-15] MEDS ORDERED: POTASSIUM CHLORIDE 20MEQ/100ML 100 ML IV PRN (11:30)
[2021-03-15] MEDS ORDERED: PROPOFOL 10 MG/ML 20ML VIAL IV ONE (12:02)
[2021-03-15] MEDS ORDERED: CEFAZOLIN SODIUM 1 GM VIAL ONE (12:17)
[2021-03-15 21:46] LABS: CREATININE 2.7 mg/dL (0.5-1.5); MAGNESIUM 1.5 mg/dL (1.80-2.40); POTASSIUM 3.2 mmol/L (3.5-5.1)
[2021-03-15] MEDS: ENZALUTAMIDE 160 MG PO SCH (22:49)
[2021-03-16] VITALS (7 sets, daily range): BP systolic 141–158; BP diastolic 71–90
[2021-03-16 03:40] LABS: HEMATOCRIT 26.8 % (42-54); MEAN CORPUSCULAR HEMOGLOBIN 27.6 pg (27.0-33.0); MEAN CORPUSCULAR HGB CONC 32.8 g/dL (32.0-36.0); NUCLEATED RED BLOOD CELLS 0.2 % (0.0-0.19); RED BLOOD CELL COUNT(AUTO) 3.19 MIL/uL (4.50-6.20); RED CELL DISTRIBUTION WIDTH 19.2 % (11.0-15.5); WHITE BLOOD COUNT (AUTO) 11.2 K/uL (4.8-10.8)
[2021-03-16 03:46] LABS: CREATININE 2.6 mg/dL (0.5-1.5); POTASSIUM 3.3 mmol/L (3.5-5.1)
[2021-03-16] MEDS: POTASSIUM CHLORIDE 20MEQ/100ML 100 ML IV PRN ×2 (04:05→21:16)
[2021-03-16] MEDS ORDERED: DEXTROSE 5%-WATER 500 ML IV ONE (05:15)
[2021-03-16] MEDS: DEXAMETHASONE 4 MG TAB PO SCH ×2 (09:00→21:12)
[2021-03-16] MEDS: Vitamin B Complex/Vit C/Folic Acid PO SCH (09:00)
[2021-03-16] MEDS: PANTOPRAZOLE 40 MG/VIAL IVP SCH ×2 (09:00→21:12)
[2021-03-16] MEDS: MEGESTROL ACETATE PO SCH (09:00)
[2021-03-16] MEDS: ENZALUTAMIDE 160 MG PO SCH (21:00)
[2021-03-17 04:00] VITALS: BP 136/73
[2021-03-17 05:16] LABS: BASOPHILS % (AUTO) 0.9 % (0.0-5.0); EOSINOPHILS % (AUTO) 1.4 % (0.0-8.0); HEMATOCRIT 27.7 % (42-54); LYMPHOCYTES % (AUTO) 18.1 % (21.0-51.0); MEAN CORPUSCULAR HEMOGLOBIN 27.5 pg (27.0-33.0); MEAN CORPUSCULAR HGB CONC 32.5 g/dL (32.0-36.0); MEAN CORPUSCULAR VOLUME 84.7 fL (79-99); MONOCYTES % (AUTO) 5.6 % (3.0-13.0); NEUTROPHILS % (AUTO) 69.2 % (40.0-77.0); NUCLEATED RED BLOOD CELLS 0.3 % (0.0-0.19); PLATELET COUNT (AUTO) 284 K/uL (130-400); RED BLOOD CELL COUNT(AUTO) 3.27 MIL/uL (4.50-6.20); RED CELL DISTRIBUTION WIDTH 19.9 % (11.0-15.5); WHITE BLOOD COUNT (AUTO) 10.2 K/uL (4.8-10.8)
[2021-03-17 05:43] LABS: CREATININE 2.5 mg/dL (0.5-1.5); POTASSIUM 3.7 mmol/L (3.5-5.1)
[2021-03-17] MEDS: MEGESTROL ACETATE PO SCH (07:33)
[2021-03-17 08:02] VITALS: BP 141/79
[2021-03-17] MEDS: PANTOPRAZOLE 40 MG/VIAL IVP SCH ×2 (08:08→20:55)
[2021-03-17] MEDS: Vitamin B Complex/Vit C/Folic Acid PO SCH (08:08)
[2021-03-17] MEDS: DEXAMETHASONE 4 MG TAB PO SCH ×2 (08:08→20:54)
[2021-03-17 11:54] VITALS: BP 140/65
[2021-03-17 15:58] VITALS: BP 138/63
[2021-03-17 19:45] VITALS: BP 153/52
[2021-03-17] MEDS: ENZALUTAMIDE 160 MG PO SCH (20:55)
[2021-03-18 00:45] VITALS: BP 143/71
[2021-03-18 04:14] VITALS: BP 151/87
[2021-03-18 05:48] LABS: BASOPHILS % (AUTO) 0.7 % (0.0-5.0); EOSINOPHILS % (AUTO) 1.5 % (0.0-8.0); HEMATOCRIT 28.3 % (42-54); MEAN CORPUSCULAR HEMOGLOBIN 27.2 pg (27.0-33.0); MEAN CORPUSCULAR HGB CONC 32.2 g/dL (32.0-36.0); MEAN CORPUSCULAR VOLUME 84.5 fL (79-99); MONOCYTES % (AUTO) 4.6 % (3.0-13.0); NEUTROPHILS % (AUTO) 74.9 % (40.0-77.0); NUCLEATED RED BLOOD CELLS 0.3 % (0.0-0.19); PLATELET COUNT (AUTO) 281 K/uL (130-400); RED BLOOD CELL COUNT(AUTO) 3.35 MIL/uL (4.50-6.20); RED CELL DISTRIBUTION WIDTH 20.1 % (11.0-15.5); WHITE BLOOD COUNT (AUTO) 10.6 K/uL (4.8-10.8)
[2021-03-18 06:14] LABS: B-TYPE NATRIURETIC PEPTIDE 566 pg/mL (0-100)
[2021-03-18 06:39] LABS: CREATININE 2.5 mg/dL (0.5-1.5); POTASSIUM 3.6 mmol/L (3.5-5.1)
[2021-03-18 07:56] VITALS: BP 143/71
[2021-03-18] MEDS: MEGESTROL ACETATE PO SCH (08:46)
[2021-03-18] MEDS: Vitamin B Complex/Vit C/Folic Acid PO SCH (08:46)
[2021-03-18] MEDS: DEXAMETHASONE 4 MG TAB PO SCH ×2 (08:47→21:09)
[2021-03-18] MEDS: PANTOPRAZOLE 40 MG/VIAL IVP SCH ×2 (08:47→21:09)
[2021-03-18 11:55] VITALS: BP 156/77
[2021-03-18 16:00] VITALS: BP 138/71
[2021-03-18 20:24] VITALS: BP 103/58
[2021-03-18] MEDS: ENZALUTAMIDE 160 MG PO SCH (21:00)
[2021-03-18] MEDS: LACTULOSE 20 GM/30 ML UDCUP PO SCH (21:10)
[2021-03-19 00:24] VITALS: BP 146/64
[2021-03-19 04:24] VITALS: BP 134/70
[2021-03-19 06:45] LABS: BASOPHILS % (AUTO) 0.8 % (0.0-5.0); EOSINOPHILS % (AUTO) 1.3 % (0.0-8.0); HEMATOCRIT 30.2 % (42-54); LYMPHOCYTES % (AUTO) 12.2 % (21.0-51.0); MEAN CORPUSCULAR HEMOGLOBIN 27.6 pg (27.0-33.0); MEAN CORPUSCULAR HGB CONC 31.8 g/dL (32.0-36.0); MEAN CORPUSCULAR VOLUME 86.8 fL (79-99); MONOCYTES % (AUTO) 4.4 % (3.0-13.0); NEUTROPHILS % (AUTO) 77.4 % (40.0-77.0); NUCLEATED RED BLOOD CELLS 0.2 % (0.0-0.19); PLATELET COUNT (AUTO) 214 K/uL (130-400); RED BLOOD CELL COUNT(AUTO) 3.48 MIL/uL (4.50-6.20); RED CELL DISTRIBUTION WIDTH 20.5 % (11.0-15.5); WHITE BLOOD COUNT (AUTO) 9.3 K/uL (4.8-10.8)
[2021-03-19 06:59] LABS: CREATININE 2.6 mg/dL (0.5-1.5); POTASSIUM 3.2 mmol/L (3.5-5.1)
[2021-03-19 08:00] VITALS: BP 134/79
[2021-03-19] MEDS ORDERED: DEXTROSE 5%-WATER 500 ML IV ONE (08:15)
[2021-03-19] MEDS ORDERED: EPOETIN ALFA-EPBX (NON-ESRD) 10,000 UNIT/ML VIAL SQ SCH (09:00)
[2021-03-19] MEDS: MEGESTROL ACETATE PO SCH (09:00)
[2021-03-19] MEDS: PANTOPRAZOLE 40 MG/VIAL IVP SCH ×2 (10:13→21:08)
[2021-03-19] MEDS: LACTULOSE 20 GM/30 ML UDCUP PO SCH ×2 (10:13→21:00)
[2021-03-19] MEDS: Vitamin B Complex/Vit C/Folic Acid PO SCH (10:14)
[2021-03-19] MEDS: DEXAMETHASONE 4 MG TAB PO SCH ×2 (10:14→21:08)
[2021-03-19] MEDS: EPOETIN ALFA-EPBX (NON-ESRD) 10,000 UNIT/ML VIAL SQ SCH (10:14)
[2021-03-19 11:41] VITALS: BP 133/59
[2021-03-19] MEDS: DEXTROSE 5%-WATER 1,000 ML IV SCH (11:45)
[2021-03-19 16:00] VITALS: BP 167/84
[2021-03-19] MEDS ORDERED: NYSTATIN 15 GM POWDER TP PRN (17:30)
[2021-03-19] MEDS: POTASSIUM CHLORIDE 20MEQ/100ML 100 ML IV PRN (18:31)
[2021-03-19 20:24] VITALS: BP 159/76
[2021-03-19] MEDS: ENZALUTAMIDE 160 MG PO SCH (21:00)
[2021-03-20 00:34] VITALS: BP 138/70
[2021-03-20 04:05] VITALS: BP 140/82
[2021-03-20 04:42] LABS: POTASSIUM 3.7 mmol/L (3.5-5.1)
[2021-03-20] MEDS: DEXTROSE 5%-WATER 1,000 ML IV SCH ×2 (06:29→19:27)
[2021-03-20 06:30] LABS: BASOPHILS % (AUTO) 0.5 % (0.0-5.0); EOSINOPHILS % (AUTO) 0.8 % (0.0-8.0); HEMATOCRIT 28.9 % (42-54); MEAN CORPUSCULAR HEMOGLOBIN 27.7 pg (27.0-33.0); MEAN CORPUSCULAR HGB CONC 31.8 g/dL (32.0-36.0); MONOCYTES % (AUTO) 4.3 % (3.0-13.0); NEUTROPHILS % (AUTO) 78.7 % (40.0-77.0); NUCLEATED RED BLOOD CELLS 0.2 % (0.0-0.19); PLATELET COUNT (AUTO) 243 K/uL (130-400); RED BLOOD CELL COUNT(AUTO) 3.32 MIL/uL (4.50-6.20); RED CELL DISTRIBUTION WIDTH 20.7 % (11.0-15.5); WHITE BLOOD COUNT (AUTO) 11.2 K/uL (4.8-10.8)
[2021-03-20 06:38] LABS: CREATININE 2.5 mg/dL (0.5-1.5)
[2021-03-20 08:00] VITALS: BP 138/70
[2021-03-20] MEDS: LACTULOSE 20 GM/30 ML UDCUP PO SCH ×2 (08:29→20:38)
[2021-03-20] MEDS: PANTOPRAZOLE 40 MG/VIAL IVP SCH ×2 (08:29→20:38)
[2021-03-20] MEDS: Vitamin B Complex/Vit C/Folic Acid PO SCH (08:29)
[2021-03-20] MEDS: MEGESTROL ACETATE PO SCH (08:29)
[2021-03-20] MEDS: DEXAMETHASONE 4 MG TAB PO SCH ×2 (08:29→20:38)
[2021-03-20 12:10] VITALS: BP 145/82
[2021-03-20 16:00] VITALS: BP 132/68
[2021-03-20 19:58] VITALS: BP_SYST 131; BP_SYST 133; BP_DIAS 61; BP_DIAS 71
[2021-03-20] MEDS: ENZALUTAMIDE 160 MG PO SCH (20:31)
[2021-03-21] VITALS: BP 124/69
[2021-03-21 04:00] VITALS: BP 113/59
[2021-03-21 05:01] LABS: CREATININE 2.4 mg/dL (0.5-1.5); POTASSIUM 3.8 mmol/L (3.5-5.1)
[2021-03-21] MEDS: DEXTROSE 5%-WATER 1,000 ML IV SCH (07:08)
[2021-03-21 08:28] VITALS: BP 116/53
[2021-03-21] MEDS: MEGESTROL ACETATE PO SCH (09:00)
[2021-03-21] MEDS: LACTULOSE 20 GM/30 ML UDCUP PO SCH ×2 (09:00→21:00)
[2021-03-21] MEDS: Vitamin B Complex/Vit C/Folic Acid PO SCH (09:14)
[2021-03-21] MEDS: DEXAMETHASONE 4 MG TAB PO SCH ×2 (09:14→22:03)
[2021-03-21] MEDS: PANTOPRAZOLE 40 MG/VIAL IVP SCH ×2 (09:14→22:03)
[2021-03-21 12:24] VITALS: BP 125/55
[2021-03-21 16:40] VITALS: BP 145/68
[2021-03-21 20:08] VITALS: BP 150/59
[2021-03-21] MEDS: ENZALUTAMIDE 160 MG PO SCH (21:00)
[2021-03-21] MEDS: ACETAMINOPHEN 325 MG TAB PO PRN (22:04)
[2021-03-21] MEDS: BALSAM PERU/CASTOR OIL 60 GM TUBE TP SCH (22:14)
[2021-03-22] VITALS (7 sets, daily range): BP systolic 125–145; BP diastolic 48–72
[2021-03-22 04:18] LABS: BASOPHILS % (AUTO) 0.3 % (0.0-5.0); EOSINOPHILS % (AUTO) 0.1 % (0.0-8.0); HEMATOCRIT 24.1 % (42-54); LYMPHOCYTES % (AUTO) 7.1 % (21.0-51.0); MEAN CORPUSCULAR HEMOGLOBIN 28.1 pg (27.0-33.0); MEAN CORPUSCULAR HGB CONC 33.6 g/dL (32.0-36.0); MEAN CORPUSCULAR VOLUME 83.7 fL (79-99); NEUTROPHILS % (AUTO) 85.3 % (40.0-77.0); NUCLEATED RED BLOOD CELLS 0.1 % (0.0-0.19); PLATELET COUNT (AUTO) 208 K/uL (130-400); RED BLOOD CELL COUNT(AUTO) 2.88 MIL/uL (4.50-6.20); RED CELL DISTRIBUTION WIDTH 19.7 % (11.0-15.5); WHITE BLOOD COUNT (AUTO) 14.3 K/uL (4.8-10.8)
[2021-03-22 04:40] LABS: ALBUMIN 1.2 g/dL (3.5-5.0); BILIRUBIN,TOTAL 0.4 mg/dL (0.2-1.0); CREATININE 3.1 mg/dL (0.5-1.5); MAGNESIUM 1.3 mg/dL (1.80-2.40); PHOSPHORUS 5.5 mg/dL (2.5-4.9); POTASSIUM 4.1 mmol/L (3.5-5.1); TOTAL PROTEIN, SERUM 6.5 g/dL (6.0-8.3)
[2021-03-22 04:42] LABS: % IRON SATURATION 13.5 % (30-44)
[2021-03-22] MEDS: MEGESTROL ACETATE PO SCH (09:00)
[2021-03-22] MEDS: LACTULOSE 20 GM/30 ML UDCUP PO SCH (09:00)
[2021-03-22] MEDS ORDERED: IRON SUCROSE COMPLEX 300 MG in SODIUM CHLORIDE 0.9% 50 ML IV SCH (09:00)
[2021-03-22] MEDS: BALSAM PERU/CASTOR OIL 60 GM TUBE TP SCH (09:00)
[2021-03-22] MEDS: Vitamin B Complex/Vit C/Folic Acid PO SCH (11:38)
[2021-03-22] MEDS: DEXAMETHASONE 4 MG TAB PO SCH (11:39)
[2021-03-22] MEDS: PANTOPRAZOLE 40 MG/VIAL IVP SCH (11:39)
[2021-03-22] MEDS: ACETAMINOPHEN 325 MG TAB PO PRN (11:44)
[2021-03-22] MEDS: ENZALUTAMIDE 160 MG PO SCH (21:00)
[2021-03-23] MEDS: PANTOPRAZOLE 40 MG/VIAL IVP SCH ×3 (00:08→21:26)
[2021-03-23] MEDS: LACTULOSE 20 GM/30 ML UDCUP PO SCH ×3 (00:08→21:00)
[2021-03-23] MEDS: DEXAMETHASONE 4 MG TAB PO SCH ×3 (00:09→21:28)
[2021-03-23] MEDS: MEROPENEM 500 MG VIAL IV SCH ×3 (00:11→21:26)
[2021-03-23] MEDS: BALSAM PERU/CASTOR OIL 60 GM TUBE TP SCH ×3 (00:13→21:28)
[2021-03-23 04:19] LABS: BASOPHILS % (AUTO) 0.2 % (0.0-5.0); EOSINOPHILS % (AUTO) 0.1 % (0.0-8.0); HEMATOCRIT 23.8 % (42-54); LYMPHOCYTES % (AUTO) 5.9 % (21.0-51.0); MEAN CORPUSCULAR HEMOGLOBIN 27.5 pg (27.0-33.0); MEAN CORPUSCULAR HGB CONC 32.4 g/dL (32.0-36.0); MONOCYTES % (AUTO) 5.4 % (3.0-13.0); NEUTROPHILS % (AUTO) 86.8 % (40.0-77.0); PLATELET COUNT (AUTO) 192 K/uL (130-400); RED CELL DISTRIBUTION WIDTH 20.3 % (11.0-15.5); WHITE BLOOD COUNT (AUTO) 12.3 K/uL (4.8-10.8)
[2021-03-23 04:24] VITALS: BP 134/65
[2021-03-23 04:47] LABS: ALBUMIN 1.2 g/dL (3.5-5.0); BILIRUBIN,TOTAL 0.4 mg/dL (0.2-1.0); CREATININE 3.6 mg/dL (0.5-1.5); TOTAL PROTEIN, SERUM 6.8 g/dL (6.0-8.3)
[2021-03-23 08:00] VITALS: BP 129/57
[2021-03-23] MEDS: MEGESTROL ACETATE PO SCH (08:11)
[2021-03-23] MEDS: Vitamin B Complex/Vit C/Folic Acid PO SCH (09:43)
[2021-03-23 12:00] VITALS: BP 128/60
[2021-03-23 16:00] VITALS: BP 144/64
[2021-03-23 20:20] VITALS: BP 134/69
[2021-03-23] MEDS: ENZALUTAMIDE 160 MG PO SCH (21:00)
[2021-03-24 00:20] VITALS: BP 125/65
[2021-03-24 04:09] LABS: BASOPHILS % (AUTO) 0.2 % (0.0-5.0); EOSINOPHILS % (AUTO) 0.3 % (0.0-8.0); HEMATOCRIT 23.1 % (42-54); LYMPHOCYTES % (AUTO) 3.7 % (21.0-51.0); MEAN CORPUSCULAR HEMOGLOBIN 28.3 pg (27.0-33.0); MEAN CORPUSCULAR HGB CONC 33.3 g/dL (32.0-36.0); MEAN CORPUSCULAR VOLUME 84.9 fL (79-99); MONOCYTES % (AUTO) 4.9 % (3.0-13.0); NEUTROPHILS % (AUTO) 89.1 % (40.0-77.0); PLATELET COUNT (AUTO) 232 K/uL (130-400); RED BLOOD CELL COUNT(AUTO) 2.72 MIL/uL (4.50-6.20); RED CELL DISTRIBUTION WIDTH 20.7 % (11.0-15.5); WHITE BLOOD COUNT (AUTO) 11.9 K/uL (4.8-10.8)
[2021-03-24 04:20] VITALS: BP 154/60
[2021-03-24 04:34] LABS: ALBUMIN 1.2 g/dL (3.5-5.0); BILIRUBIN,TOTAL 0.3 mg/dL (0.2-1.0); CREATININE 3.9 mg/dL (0.5-1.5); MAGNESIUM 2.1 mg/dL (1.80-2.40); POTASSIUM 4.3 mmol/L (3.5-5.1); TOTAL PROTEIN, SERUM 7.1 g/dL (6.0-8.3)
[2021-03-24 07:00] VITALS: BP 138/74
[2021-03-24] MEDS: Vitamin B Complex/Vit C/Folic Acid PO SCH (10:25)
[2021-03-24] MEDS: LACTULOSE 20 GM/30 ML UDCUP PO SCH (10:25)
[2021-03-24] MEDS: PANTOPRAZOLE 40 MG/VIAL IVP SCH ×2 (10:25→21:47)
[2021-03-24] MEDS: DEXAMETHASONE 4 MG TAB PO SCH (10:25)
[2021-03-24] MEDS: MEROPENEM 500 MG VIAL IV SCH ×2 (10:28→21:46)
[2021-03-24] MEDS: BALSAM PERU/CASTOR OIL 60 GM TUBE TP SCH ×2 (10:28→21:47)
[2021-03-24] MEDS: MEGESTROL ACETATE PO SCH (10:28)
[2021-03-24 11:00] VITALS: BP 121/61
[2021-03-24 12:21] LABS: INR 1.79 (0.85-1.15); PROTHROMBIN TIME 18.5 SEC (9.6-11.6)
[2021-03-24 12:22] LABS: PARTIAL THROMBOPLASTIN TIME 39.3 SEC (26.3-35.5)
[2021-03-24 16:00] VITALS: BP 122/66
[2021-03-24] MEDS: METOPROLOL TARTRATE 25 MG TAB PEG SCH ×2 (16:19→21:47)
[2021-03-24 20:00] VITALS: BP 144/74
[2021-03-24 21:53] LABS: HEMATOCRIT 21.9 % (42-54)
[2021-03-25] VITALS (7 sets, daily range): BP systolic 104–152; BP diastolic 68–87
[2021-03-25] MEDS ORDERED: SODIUM CHLORIDE 0.9% 250 ML IV ONE (00:19)
[2021-03-25] MEDS: DEXAMETHASONE 4 MG TAB PO SCH (09:16)
[2021-03-25] MEDS: METOPROLOL TARTRATE 25 MG TAB PEG SCH ×2 (09:16→21:42)
[2021-03-25] MEDS: MEROPENEM 500 MG VIAL IV SCH ×2 (09:16→21:40)
[2021-03-25] MEDS: PANTOPRAZOLE 40 MG/VIAL IVP SCH ×2 (09:16→21:40)
[2021-03-25] MEDS: Vitamin B Complex/Vit C/Folic Acid PO SCH (09:16)
[2021-03-25] MEDS: BALSAM PERU/CASTOR OIL 60 GM TUBE TP SCH ×2 (09:17→21:43)
[2021-03-25 10:47] LABS: HEMATOCRIT 25.3 % (42-54); MEAN CORPUSCULAR HEMOGLOBIN 28.2 pg (27.0-33.0); MEAN CORPUSCULAR HGB CONC 33.2 g/dL (32.0-36.0); MEAN CORPUSCULAR VOLUME 84.9 fL (79-99); NUCLEATED RED BLOOD CELLS 0.4 % (0.0-0.19); RED BLOOD CELL COUNT(AUTO) 2.98 MIL/uL (4.50-6.20); RED CELL DISTRIBUTION WIDTH 19.7 % (11.0-15.5); WHITE BLOOD COUNT (AUTO) 8.3 K/uL (4.8-10.8)
[2021-03-25 11:00] LABS: INR 1.78 (0.85-1.15); PROTHROMBIN TIME 18.4 SEC (9.6-11.6)
[2021-03-25 11:01] LABS: PARTIAL THROMBOPLASTIN TIME 38.4 SEC (26.3-35.5)
[2021-03-25 11:07] LABS: ALBUMIN 1.2 g/dL (3.5-5.0); BILIRUBIN,DIRECT 0.1 mg/dL (0.0-0.3); BILIRUBIN,TOTAL 0.4 mg/dL (0.2-1.0); CREATININE 3.9 mg/dL (0.5-1.5); POTASSIUM 3.9 mmol/L (3.5-5.1); TOTAL PROTEIN, SERUM 7.1 g/dL (6.0-8.3)
[2021-03-26 04:03] VITALS: BP 163/87
[2021-03-26 05:12] LABS: BASOPHILS % (AUTO) 0.6 % (0.0-5.0); EOSINOPHILS % (AUTO) 2.5 % (0.0-8.0); HEMATOCRIT 25.8 % (42-54); LYMPHOCYTES % (AUTO) 7.7 % (21.0-51.0); MEAN CORPUSCULAR HEMOGLOBIN 27.8 pg (27.0-33.0); MEAN CORPUSCULAR HGB CONC 32.9 g/dL (32.0-36.0); MEAN CORPUSCULAR VOLUME 84.3 fL (79-99); MONOCYTES % (AUTO) 6.2 % (3.0-13.0); NEUTROPHILS % (AUTO) 81.1 % (40.0-77.0); NUCLEATED RED BLOOD CELLS 0.4 % (0.0-0.19); PLATELET COUNT (AUTO) 261 K/uL (130-400); RED BLOOD CELL COUNT(AUTO) 3.06 MIL/uL (4.50-6.20); RED CELL DISTRIBUTION WIDTH 19.8 % (11.0-15.5); WHITE BLOOD COUNT (AUTO) 8.1 K/uL (4.8-10.8)
[2021-03-26 05:33] LABS: ALBUMIN 1.2 g/dL (3.5-5.0); BILIRUBIN,TOTAL 0.4 mg/dL (0.2-1.0); CREATININE 4.3 mg/dL (0.5-1.5); TOTAL PROTEIN, SERUM 7.3 g/dL (6.0-8.3)
[2021-03-26 07:00] VITALS: BP 141/66
[2021-03-26] MEDS: METOPROLOL TARTRATE 25 MG TAB PEG SCH ×2 (08:33→21:18)
[2021-03-26] MEDS: Vitamin B Complex/Vit C/Folic Acid PO SCH (08:33)
[2021-03-26] MEDS: PANTOPRAZOLE 40 MG/VIAL IVP SCH ×2 (08:33→21:18)
[2021-03-26] MEDS: MEROPENEM 500 MG VIAL IV SCH ×2 (08:33→21:18)
[2021-03-26] MEDS: DEXAMETHASONE 4 MG TAB PO SCH (08:34)
[2021-03-26] MEDS: BALSAM PERU/CASTOR OIL 60 GM TUBE TP SCH ×2 (08:36→21:19)
[2021-03-26] MEDS: EPOETIN ALFA-EPBX (NON-ESRD) 10,000 UNIT/ML VIAL SQ SCH (09:06)
[2021-03-26 11:00] VITALS: BP 136/95
[2021-03-26 16:00] VITALS: BP 144/84
[2021-03-26 20:00] VITALS: BP 137/74
[2021-03-26 23:34] VITALS: BP 145/78
[2021-03-27 04:00] VITALS: BP 152/79
[2021-03-27] MEDS: ACETAMINOPHEN 325 MG TAB PO PRN (04:20)
[2021-03-27 06:46] LABS: BASOPHILS % (AUTO) 0.8 % (0.0-5.0); EOSINOPHILS % (AUTO) 2.3 % (0.0-8.0); LYMPHOCYTES % (AUTO) 7.9 % (21.0-51.0); MEAN CORPUSCULAR HGB CONC 31.9 g/dL (32.0-36.0); MEAN CORPUSCULAR VOLUME 87.8 fL (79-99); MONOCYTES % (AUTO) 4.7 % (3.0-13.0); NEUTROPHILS % (AUTO) 81.7 % (40.0-77.0); NUCLEATED RED BLOOD CELLS 0.4 % (0.0-0.19); PLATELET COUNT (AUTO) 281 K/uL (130-400); RED BLOOD CELL COUNT(AUTO) 2.96 MIL/uL (4.50-6.20); RED CELL DISTRIBUTION WIDTH 20.3 % (11.0-15.5); WHITE BLOOD COUNT (AUTO) 9.2 K/uL (4.8-10.8)
[2021-03-27 06:58] LABS: CREATININE 4.9 mg/dL (0.5-1.5); POTASSIUM 3.9 mmol/L (3.5-5.1)
[2021-03-27] MEDS: MEROPENEM 500 MG VIAL IV SCH ×2 (07:16→22:23)
[2021-03-27] MEDS: PANTOPRAZOLE 40 MG/VIAL IVP SCH ×2 (07:16→22:23)
[2021-03-27] MEDS: DEXAMETHASONE 4 MG TAB PO SCH (07:17)
[2021-03-27] MEDS: Vitamin B Complex/Vit C/Folic Acid PO SCH (07:17)
[2021-03-27] MEDS: METOPROLOL TARTRATE 25 MG TAB PEG SCH ×2 (07:17→22:23)
[2021-03-27] MEDS: BALSAM PERU/CASTOR OIL 60 GM TUBE TP SCH ×2 (07:21→22:24)
[2021-03-27 08:22] VITALS: BP 162/58
[2021-03-27 12:26] VITALS: BP_SYST 118; BP_SYST 162; BP_DIAS 58; BP_DIAS 71
[2021-03-27] MEDS ORDERED: SODIUM CHLORIDE 0.9% 1000ML 500 ML IV ONE (12:30)
[2021-03-27 14:00] LABS: ABG BASE EXCESS -11.8 mmol/L (-2.0-3.0); ABG HCO3 9.1 mmol/L (21.0-28.0); ABG OXYGEN SATURATION 98.4 % (95.0-99.0); ABG PCO2 < 15 mmHg (35-48)
[2021-03-27] MEDS ORDERED: LORAZEPAM 2 MG/ML 1 ML VIAL IM PRN (16:45)
[2021-03-27] MEDS ORDERED: HYDROMORPHONE 1MG AMP (1MG/ML) IVP PRN (16:45)
[2021-03-27] MEDS ORDERED: SODIUM BICARB 8.4% 50ML SYRINGE IVP SCH ×2 (16:45→17:15)
[2021-03-27 17:33] VITALS: BP 118/69
[2021-03-27] MEDS ORDERED: SODIUM BICARB 50MEQ 50ML VIAL 0 ML ONE (17:38)
[2021-03-27 20:00] VITALS: BP 116/67
[2021-03-27 20:00] LABS: CREATININE 4.9 mg/dL (0.5-1.5); POTASSIUM 5.9 mmol/L (3.5-5.1)
[2021-03-27] MEDS: DEXTROSE 50%-WATER 50 ML DISP.SYRIN IV SCH (23:58)
[2021-03-27] MEDS: SODIUM POLYSTYRENE SULFONATE 15 GM/60 ML ML PEG SCH (23:58)
[2021-03-28] VITALS (7 sets, daily range): BP systolic 120–153; BP diastolic 64–84
[2021-03-28] MEDS: INSULIN HUMULIN R 100 UNIT/ML 3ML SQ SCH ×2 (00:01→21:45)
[2021-03-28 04:17] LABS: HEMATOCRIT 26.4 % (42-54); MEAN CORPUSCULAR HEMOGLOBIN 28.6 pg (27.0-33.0); MEAN CORPUSCULAR VOLUME 86.8 fL (79-99); NUCLEATED RED BLOOD CELLS 1.3 % (0.0-0.19); RED BLOOD CELL COUNT(AUTO) 3.04 MIL/uL (4.50-6.20); RED CELL DISTRIBUTION WIDTH 20.6 % (11.0-15.5); WHITE BLOOD COUNT (AUTO) 7.9 K/uL (4.8-10.8)
[2021-03-28 04:49] LABS: POTASSIUM 3.8 mmol/L (3.5-5.1); URIC ACID 11.2 mg/dL (2.6-7.2)
[2021-03-28] MEDS: METOPROLOL TARTRATE 25 MG TAB PEG SCH ×2 (08:50→21:36)
[2021-03-28] MEDS: PANTOPRAZOLE 40 MG/VIAL IVP SCH ×2 (08:50→20:02)
[2021-03-28] MEDS: Vitamin B Complex/Vit C/Folic Acid PO SCH (08:50)
[2021-03-28] MEDS: MEROPENEM 500 MG VIAL IV SCH ×2 (08:50→20:02)
[2021-03-28] MEDS: DEXAMETHASONE 4 MG TAB PO SCH (08:51)
[2021-03-28] MEDS: BALSAM PERU/CASTOR OIL 60 GM TUBE TP SCH ×2 (08:53→21:36)
[2021-03-28 18:33] LABS: CREATININE 5.2 mg/dL (0.5-1.5); POTASSIUM 3.7 mmol/L (3.5-5.1)
[2021-03-28] MEDS: DEXTROSE 5%-WATER 500 ML IV SCH (20:02)
[2021-03-28] MEDS: SODIUM POLYSTYRENE SULFONATE 15 GM/60 ML ML PEG SCH (21:45)
[2021-03-28] MEDS: DEXTROSE 50%-WATER 50 ML DISP.SYRIN IV SCH (22:23)
[2021-03-29 04:00] VITALS: BP 123/63
[2021-03-29 05:57] LABS: BASOPHILS % (AUTO) 0.7 % (0.0-5.0); EOSINOPHILS % (AUTO) 7.1 % (0.0-8.0); LYMPHOCYTES % (AUTO) 12.6 % (21.0-51.0); MEAN CORPUSCULAR HEMOGLOBIN 28.3 pg (27.0-33.0); MEAN CORPUSCULAR VOLUME 88.3 fL (79-99); MONOCYTES % (AUTO) 4.7 % (3.0-13.0); NEUTROPHILS % (AUTO) 70.6 % (40.0-77.0); PLATELET COUNT (AUTO) 299 K/uL (130-400); RED BLOOD CELL COUNT(AUTO) 2.83 MIL/uL (4.50-6.20); RED CELL DISTRIBUTION WIDTH 20.4 % (11.0-15.5); WHITE BLOOD COUNT (AUTO) 8.9 K/uL (4.8-10.8)
[2021-03-29 06:08] LABS: CREATININE 4.9 mg/dL (0.5-1.5); POTASSIUM 3.4 mmol/L (3.5-5.1)
[2021-03-29] MEDS: SODIUM POLYSTYRENE SULFONATE 15 GM/60 ML ML PEG SCH (07:22)
[2021-03-29] MEDS: INSULIN HUMULIN R 100 UNIT/ML 3ML SQ SCH (07:22)
[2021-03-29] MEDS: DEXTROSE 50%-WATER 50 ML DISP.SYRIN IV SCH (07:22)
[2021-03-29 08:00] VITALS: BP 118/57
[2021-03-29] MEDS: DEXTROSE 5%-WATER 500 ML IV SCH ×2 (08:00→16:36)
[2021-03-29] MEDS: MEROPENEM 500 MG VIAL IV SCH ×2 (08:24→20:53)
[2021-03-29] MEDS: PANTOPRAZOLE 40 MG/VIAL IVP SCH ×2 (08:24→20:53)
[2021-03-29] MEDS: Vitamin B Complex/Vit C/Folic Acid PO SCH (08:25)
[2021-03-29] MEDS: DEXAMETHASONE 4 MG TAB PO SCH (08:25)
[2021-03-29] MEDS: METOPROLOL TARTRATE 25 MG TAB PEG SCH ×2 (08:26→20:53)
[2021-03-29] MEDS: BALSAM PERU/CASTOR OIL 60 GM TUBE TP SCH ×2 (08:27→21:00)
[2021-03-29 12:00] VITALS: BP 114/72
[2021-03-29 16:00] VITALS: BP 129/68
[2021-03-29 19:00] VITALS: BP 135/73
[2021-03-29 23:35] VITALS: BP 129/75
[2021-03-30 03:50] VITALS: BP 127/75
[2021-03-30] MEDS: DEXTROSE 5%-WATER 500 ML IV SCH ×3 (07:22→21:30)
[2021-03-30] MEDS: PANTOPRAZOLE 40 MG/VIAL IVP SCH ×2 (07:48→21:00)
[2021-03-30] MEDS: MEROPENEM 500 MG VIAL IV SCH ×2 (07:48→20:00)
[2021-03-30] MEDS: METOPROLOL TARTRATE 25 MG TAB PEG SCH ×2 (07:48→21:00)
[2021-03-30] MEDS: DEXAMETHASONE 4 MG TAB PO SCH (07:48)
[2021-03-30] MEDS: Vitamin B Complex/Vit C/Folic Acid PO SCH (07:48)
[2021-03-30] MEDS: BALSAM PERU/CASTOR OIL 60 GM TUBE TP SCH ×2 (07:49→21:00)
[2021-03-30 08:00] VITALS: BP 123/62
[2021-03-30 12:02] VITALS: BP 113/53
[2021-03-30] MEDS ORDERED: LORAZEPAM 1 MG TABLET PO PRN (15:15)
[2021-03-30] MEDS ORDERED: ONDANSETRON 4 MG TABLET PO PRN (15:15)
[2021-03-30] MEDS ORDERED: LORAZEPAM 2 MG/ML 1 ML VIAL IVP PRN (15:15)
[2021-03-30] MEDS ORDERED: HALOPERIDOL LACTATE 5 MG/ML VIAL IV PRN ×2 (15:15)
[2021-03-30] MEDS ORDERED: ARTIFICAL TEARS SOL 15 ML OU PRN (15:15)
[2021-03-30] MEDS ORDERED: ACETAMINOPHEN 325 MG TAB PO PRN (15:15)
[2021-03-30] MEDS ORDERED: HALOPERIDOL 1 MG TABLET PO PRN ×2 (15:15)
[2021-03-30] MEDS ORDERED: ACETAMINOPHEN 650 MG SUPPOSITORY RC PRN (15:15)
[2021-03-30] MEDS ORDERED: DEXAMETHASONE 1 MG/ML PO PRN (15:15)
[2021-03-30] MEDS ORDERED: MORPHINE SULFATE 20MG/ML ORAL 0.25 ML PO PRN ×4 (15:15)
[2021-03-30] MEDS ORDERED: ONDANSETRON HCL 4 MG/2 ML VIAL IVP PRN (15:15)
[2021-03-30] MEDS ORDERED: DEXAMETHASONE SOD PHOSPHATE 4 MG/ML 1ML VIAL IVP PRN (15:15)
[2021-03-30 16:07] VITALS: BP 127/64
[2021-03-30 19:00] VITALS: BP 138/59
[2021-03-30] MEDS: DEXTROSE 50%-WATER 50 ML DISP.SYRIN IV SCH (21:45)
[2021-03-30] MEDS: INSULIN HUMULIN R 100 UNIT/ML 3ML SQ SCH (21:45)
[2021-03-31 00:29] VITALS: BP 134/59
[2021-03-31 03:57] VITALS: BP 136/69
[2021-03-31 07:30] VITALS: BP 133/52
[2021-03-31] MEDS: Vitamin B Complex/Vit C/Folic Acid PO SCH (10:43)
[2021-03-31] MEDS: METOPROLOL TARTRATE 25 MG TAB PEG SCH ×2 (10:43→20:44)
[2021-03-31] MEDS: MEROPENEM 500 MG VIAL IV SCH ×2 (10:43→20:44)
[2021-03-31] MEDS: DEXTROSE 5%-WATER 500 ML IV SCH ×2 (10:43→17:30)
[2021-03-31] MEDS: PANTOPRAZOLE 40 MG/VIAL IVP SCH ×2 (10:43→20:44)
[2021-03-31] MEDS: BALSAM PERU/CASTOR OIL 60 GM TUBE TP SCH ×2 (10:44→20:47)
[2021-03-31 11:00] VITALS: BP 115/28
[2021-03-31] MEDS ORDERED: HYDROMORPHONE 0.5 MG SYG (0.5MG/0.5ML) IVP PRN (11:45)
[2021-03-31 11:54] LABS: BASOPHILS % (AUTO) 0.5 % (0.0-5.0); EOSINOPHILS % (AUTO) 12.7 % (0.0-8.0); HEMATOCRIT 23.6 % (42-54); LYMPHOCYTES % (AUTO) 13.1 % (21.0-51.0); MEAN CORPUSCULAR HEMOGLOBIN 28.7 pg (27.0-33.0); MEAN CORPUSCULAR HGB CONC 32.2 g/dL (32.0-36.0); MEAN CORPUSCULAR VOLUME 89.1 fL (79-99); MONOCYTES % (AUTO) 3.7 % (3.0-13.0); NEUTROPHILS % (AUTO) 64.1 % (40.0-77.0); NUCLEATED RED BLOOD CELLS 1.5 % (0.0-0.19); PLATELET COUNT (AUTO) 256 K/uL (130-400); RED BLOOD CELL COUNT(AUTO) 2.65 MIL/uL (4.50-6.20); RED CELL DISTRIBUTION WIDTH 19.4 % (11.0-15.5); WHITE BLOOD COUNT (AUTO) 9.6 K/uL (4.8-10.8)
[2021-03-31 12:03] LABS: CREATININE 4.8 mg/dL (0.5-1.5); POTASSIUM 3.7 mmol/L (3.5-5.1)
[2021-03-31] MEDS: MORPHINE 2 MG SYG (2MG/1ML) IVP PRN (13:49)
[2021-03-31 16:00] VITALS: BP 120/45
[2021-03-31] MEDS: INSULIN HUMULIN R 100 UNIT/ML 3ML SQ SCH (19:22)
[2021-03-31] MEDS: DEXTROSE 50%-WATER 50 ML DISP.SYRIN IV SCH (19:22)
[2021-03-31 20:00] VITALS: BP 124/58
[2021-04-01] VITALS: BP 124/52
[2021-04-01] MEDS: DEXTROSE 5%-WATER 500 ML IV SCH ×3 (03:30→23:26)
[2021-04-01 04:00] VITALS: BP 117/55
[2021-04-01 07:14] LABS: BASOPHILS % (AUTO) 0.4 % (0.0-5.0); EOSINOPHILS % (AUTO) 13.4 % (0.0-8.0); HEMATOCRIT 25.6 % (42-54); LYMPHOCYTES % (AUTO) 15.3 % (21.0-51.0); MEAN CORPUSCULAR HEMOGLOBIN 27.9 pg (27.0-33.0); MEAN CORPUSCULAR HGB CONC 31.6 g/dL (32.0-36.0); MEAN CORPUSCULAR VOLUME 88.3 fL (79-99); MONOCYTES % (AUTO) 3.6 % (3.0-13.0); NEUTROPHILS % (AUTO) 61.3 % (40.0-77.0); NUCLEATED RED BLOOD CELLS 0.7 % (0.0-0.19); PLATELET COUNT (AUTO) 249 K/uL (130-400); RED CELL DISTRIBUTION WIDTH 18.6 % (11.0-15.5); WHITE BLOOD COUNT (AUTO) 10.6 K/uL (4.8-10.8)
[2021-04-01 07:31] VITALS: BP 110/55
[2021-04-01 07:32] LABS: CREATININE 4.7 mg/dL (0.5-1.5); POTASSIUM 4.2 mmol/L (3.5-5.1)
[2021-04-01] MEDS: BALSAM PERU/CASTOR OIL 60 GM TUBE TP SCH ×2 (09:00→21:19)
[2021-04-01] MEDS: MEROPENEM 500 MG VIAL IV SCH ×2 (10:50→21:17)
[2021-04-01] MEDS: PANTOPRAZOLE 40 MG/VIAL IVP SCH ×2 (10:50→21:17)
[2021-04-01] MEDS: Vitamin B Complex/Vit C/Folic Acid PO SCH (10:51)
[2021-04-01] MEDS: METOPROLOL TARTRATE 25 MG TAB PEG SCH ×2 (10:51→21:17)
[2021-04-01 11:18] VITALS: BP 102/51
[2021-04-01 15:16] VITALS: BP 102/57
[2021-04-01 20:08] VITALS: BP 124/52
[2021-04-02 00:08] VITALS: BP 113/50
[2021-04-02 04:08] VITALS: BP 115/55
[2021-04-02 06:34] LABS: BASOPHILS % (AUTO) 0.5 % (0.0-5.0); EOSINOPHILS % (AUTO) 16.2 % (0.0-8.0); HEMATOCRIT 23.6 % (42-54); LYMPHOCYTES % (AUTO) 9.4 % (21.0-51.0); MEAN CORPUSCULAR HEMOGLOBIN 27.7 pg (27.0-33.0); MEAN CORPUSCULAR HGB CONC 32.2 g/dL (32.0-36.0); MEAN CORPUSCULAR VOLUME 86.1 fL (79-99); MONOCYTES % (AUTO) 3.3 % (3.0-13.0); NEUTROPHILS % (AUTO) 65.4 % (40.0-77.0); NUCLEATED RED BLOOD CELLS 0.3 % (0.0-0.19); PLATELET COUNT (AUTO) 237 K/uL (130-400); RED BLOOD CELL COUNT(AUTO) 2.74 MIL/uL (4.50-6.20); WHITE BLOOD COUNT (AUTO) 11.8 K/uL (4.8-10.8)
[2021-04-02 06:51] LABS: CREATININE 4.9 mg/dL (0.5-1.5); POTASSIUM 3.9 mmol/L (3.5-5.1)
[2021-04-02 07:11] VITALS: BP 139/54
[2021-04-02] MEDS: MEROPENEM 500 MG VIAL IV SCH ×2 (10:34→22:39)
[2021-04-02] MEDS: METOPROLOL TARTRATE 25 MG TAB PEG SCH ×2 (10:35→22:40)
[2021-04-02] MEDS: EPOETIN ALFA-EPBX (NON-ESRD) 10,000 UNIT/ML VIAL SQ SCH (10:35)
[2021-04-02] MEDS: Vitamin B Complex/Vit C/Folic Acid PO SCH (10:35)
[2021-04-02] MEDS: PANTOPRAZOLE 40 MG/VIAL IVP SCH ×2 (10:45→22:39)
[2021-04-02 11:12] VITALS: BP 127/45
[2021-04-02] MEDS: BALSAM PERU/CASTOR OIL 60 GM TUBE TP SCH ×2 (13:08→22:40)
[2021-04-02 15:45] VITALS: BP 125/54
[2021-04-02 20:08] VITALS: BP 140/81
[2021-04-03 00:08] VITALS: BP 126/67
[2021-04-03 04:08] VITALS: BP 137/57
[2021-04-03] MEDS: DEXTROSE 5%-WATER 500 ML IV SCH ×2 (05:30→15:49)
[2021-04-03 07:30] VITALS: BP 125/67
[2021-04-03] MEDS: MORPHINE 2 MG SYG (2MG/1ML) IVP PRN ×7 (07:52→23:33)
[2021-04-03] MEDS: METOPROLOL TARTRATE 25 MG TAB PEG SCH ×2 (09:00→23:32)
[2021-04-03] MEDS: PANTOPRAZOLE 40 MG/VIAL IVP SCH ×2 (09:12→23:32)
[2021-04-03] MEDS: MEROPENEM 500 MG VIAL IV SCH ×2 (09:12→23:32)
[2021-04-03] MEDS: Vitamin B Complex/Vit C/Folic Acid PO SCH (09:12)
[2021-04-03] MEDS: BALSAM PERU/CASTOR OIL 60 GM TUBE TP SCH ×2 (09:13→21:00)
[2021-04-03 19:47] VITALS: BP 161/63
[2021-04-04] MEDS: DEXTROSE 5%-WATER 500 ML IV SCH ×2 (01:30→11:03)
[2021-04-04] MEDS: MORPHINE 2 MG SYG (2MG/1ML) IVP PRN ×4 (03:09→15:23)
[2021-04-04] MEDS: MORPHINE 2 MG SYG (2MG/1ML) IVP SCH ×2 (07:44→10:59)
[2021-04-04 08:00] VITALS: BP 111/64
[2021-04-04] MEDS: METOPROLOL TARTRATE 25 MG TAB PEG SCH (09:00)
[2021-04-04] MEDS: MEROPENEM 500 MG VIAL IV SCH (10:58)
[2021-04-04] MEDS: BALSAM PERU/CASTOR OIL 60 GM TUBE TP SCH (10:59)
[2021-04-04] MEDS: PANTOPRAZOLE 40 MG/VIAL IVP SCH (10:59)
[2021-04-04] MEDS: Vitamin B Complex/Vit C/Folic Acid PO SCH (10:59)
[2021-04-04 12:00] VITALS: BP 99/54
== END 2021-04-04 17:10 | disposition hospice, home (50) | DRG 668 ==
LOC: EDH 22:10 → EDHIP 03-04 → 3BH 03-04 03:32 → 2CH 03-10 19:35 → 4CH 03-12 18:25 → 3DH 03-30 20:23
PROVIDERS: ADMIT Internal Medicine; ATTEND Internal Medicine
PROC: 30233N1 Transfusion of Nonautologous Red Blood Cells into Peripheral Vein, Percutaneous Approach (ICD-10-PCS; 2021-03-04)
PROC: 05H933Z Insertion of Infusion Device into Right Brachial Vein, Percutaneous Approach (ICD-10-PCS; 2021-03-04)
PROC: 0T943ZZ Drainage of Left Kidney Pelvis, Percutaneous Approach (ICD-10-PCS; 2021-03-10)
PROC: 0T933ZZ Drainage of Right Kidney Pelvis, Percutaneous Approach (ICD-10-PCS; 2021-03-10)
PROC: BT101ZZ Fluoroscopy of Bladder using Low Osmolar Contrast (ICD-10-PCS; 2021-03-10)
PROC: 0TCB8ZZ Extirpation of Matter from Bladder, Via Natural or Artificial Opening Endoscopic (ICD-10-PCS; principal; 2021-03-10 13:00)
PROC: 0TP98DZ Removal of Intraluminal Device from Ureter, Via Natural or Artificial Opening Endoscopic (ICD-10-PCS; 2021-03-10 13:00)
PROC: 0T5B8ZZ Destruction of Bladder, Via Natural or Artificial Opening Endoscopic (ICD-10-PCS; 2021-03-10 13:00)
PROC: 0DH63UZ Insertion of Feeding Device into Stomach, Percutaneous Approach (ICD-10-PCS; 2021-03-15)
DX: N13.6 Pyonephrosis (principal); E43 Unspecified severe protein-calorie malnutrition; G93.41 Metabolic encephalopathy; R53.2 Functional quadriplegia; M48.56XA Collapsed vertebra, not elsewhere classified, lumbar region, initial encounter for fracture; M48.54XA Collapsed vertebra, not elsewhere classified, thoracic region, initial encounter for fracture; E87.1 Hypo-osmolality and hyponatremia; D62 Acute posthemorrhagic anemia; C79.51 Secondary malignant neoplasm of bone; E87.4 Mixed disorder of acid-base balance; G93.49 Other encephalopathy; R64 Cachexia; Z16.24 Resistance to multiple antibiotics; K92.1 Melena; N17.9 Acute kidney failure, unspecified; N28.9 Disorder of kidney and ureter, unspecified; M54.5 Low back pain; D63.8 Anemia in other chronic diseases classified elsewhere; C61 Malignant neoplasm of prostate; E11.22 Type 2 diabetes mellitus with diabetic chronic kidney disease; I25.10 Atherosclerotic heart disease of native coronary artery without angina pectoris; K44.9 Diaphragmatic hernia without obstruction or gangrene; M85.80 Other specified disorders of bone density and structure, unspecified site; E83.42 Hypomagnesemia; E86.0 Dehydration; E86.1 Hypovolemia; Z68.20 Body mass index [BMI] 20.0-20.9, adult; E87.6 Hypokalemia; F03.90 Unspecified dementia, unspecified severity, without behavioral disturbance, psychotic disturbance, mood disturbance, and anxiety; I12.9 Hypertensive chronic kidney disease with stage 1 through stage 4 chronic kidney disease, or unspecified chronic kidney disease; I71.4 Abdominal aortic aneurysm, without rupture; K57.90 Diverticulosis of intestine, part unspecified, without perforation or abscess without bleeding; N18.32 Chronic kidney disease, stage 3b; R13.12 Dysphagia, oropharyngeal phase; R62.7 Adult failure to thrive; Z66 Do not resuscitate; Z74.01 Bed confinement status; Z80.8 Family history of malignant neoplasm of other organs or systems; Z85.46 Personal history of malignant neoplasm of prostate; Z85.528 Personal history of other malignant neoplasm of kidney; Z86.79 Personal history of other diseases of the circulatory system; Z87.442 Personal history of urinary calculi; Z87.891 Personal history of nicotine dependence; Z90.79 Acquired absence of other genital organ(s); Z92.3 Personal history of irradiation; Z93.1 Gastrostomy status; Z95.1 Presence of aortocoronary bypass graft; F32.9 Major depressive disorder, single episode, unspecified; M19.90 Unspecified osteoarthritis, unspecified site; L53.8 Other specified erythematous conditions; Z20.822 Contact with and (suspected) exposure to COVID-19
CPT/HCPCS: 10030; 36415; 36430; 36600; 43246; 50432; 70450; 71045; 72128; 72131; 74018; 74176; 74230; 78306; 78700; 80048; 80053; 80076; 81001; 82140; 82270; 82550; 82570; 82728; 82803; 82948; 83036; 83540; 83550; 83605; 83735; 83880; 83935; 84100; 84132; 84145; 84153; 84156; 84300; 84484; 84550; 85014; 85018; 85025; 85027; 85045; 85610; 85730; 86850; 86900; 86901; 86923; 87040; 87088; 87426; 92526; 92610; 92611; 93005; 97039; 99156; 99157; A4346; A4354; A4606; A9503; A9562; C1729; C1758; C1769; C1894; C9113; G0378; J0690; J0696; J1170; J1644; J1756; J1815; J2185; J2250; J2405; J2543; J2704; J3010; J3475; J3480; J3490; J7030; J7040; J7042; J7050; J7070; J8540; P9016; Q9967; U0003